=== PATIENT | female | born 1965 | race Caucasian/White ===

== ENCOUNTER → 2017-05-21 | Day surgery (SDC) | payer OTHER ==
[~2017-05-21] MED LIST: ALUMINUM/MAGNESIUM/SIMETH 30 ML CUP ONE; APREPITANT 40 MG CAP ONE; BUPIVACAINE HCL PF 0.5% 30 ML VIAL ONE; CLINDAMYCIN PHOS 900 MG/6 ML VIAL ONE; CYCL-36 PO; KETOROLAC TROMETHAMINE 30 MG/ML (IVP) VIAL IV PUSH ONE; MAGN400 PO; MELO15 PO; MEPERIDINE HCL 25 MG/ML VIAL ONE; MIDAZOLAM HCL 2 MG/2 ML VIAL ONE; ONDANSETRON HCL 4 MG/2 ML VIAL IV PUSH ONE; PROPOFOL 200 MG/20 ML AMP IV ONE; SCOPOLAMINE 1.5 MG PATCH ONE; SODIUM CHLOR 0.9% 1000 ML BAG IV ONE; SODIUM CHLORIDE 0.9% SOLN 100 ML BAG IV ONE; SYNT125T PO; VITA400C28 PO
--- NOTE | 2017-05-21 13:20 | TN ---
cc: ELLY ANDERSON DATE OF SURGERY 05/21/2017 PRINCIPAL DIAGNOSIS Microcalcifications of the left breast not amendable to stereotactic biopsy. POSTOPERATIVE DIAGNOSIS Microcalcifications of the left breast not amendable to stereotactic biopsy. PROCEDURE PERFORMED Left breast needle-localized lumpectomy. SURGEON Elly Anderson MD ANESTHESIA General via LMA device INDICATION The patient is a 51-year-old female with an area of very posterior inferior microcalcifications which were not amendable to stereotactic biopsy. She now presents for needle-localized excision of the area. FINDINGS AT THE TIME OF SURGERY Specimen mammogram did demonstrate an intact wire and the microcalcifications were present within the specimen. PROCEDURE PERFORMED After informed consent was obtained and site verification was performed, the patient was brought to the major radiology suite where she underwent needle localization of her microcalcifications. She was then brought to the major operating room where she underwent general anesthesia via LMA device. She was given a single dose of IV clindamycin and sequential compression hose were placed. The left breast was prepped and draped in a sterile fashion. The microcalcifications were noted at 3 o'clock 5 cm from the nipple close to the inframammary crease. An inframammary crease incision was anesthetized with 0.5% Marcaine plain and incised sharply. Sharp and electrocautery dissection was performed until the wire entry point through the skin was identified and secured with a hemostat. The wire was cut off at the skin with pin cutters and a 2-0 silk transfixion suture was placed at the wire entry point into the breast tissue. Both sharp and electrocautery dissection was then performed circumferentially beyond the tip of the wire and the specimen was oriented with two sutures laterally, one short suture superiorly, and one long suture anteriorly. The specimen was removed and sent for radiology with the findings as noted as well as permanent pathologic evaluation. Inspection of the specimen did demonstrate that the medial and posterior margin was close and this area was reexcised with a stitch on the new posterior margin and sent separately as a permanent specimen. It should be noted that the posterior margin of the lumpectomy cavity was the pectoralis muscle. Hemostasis was easily obtained with electrocautery and the wound was closed using interrupted 3-0 Vicryl subcutaneous sutures and 4-0 Monocryl subcuticular suture. Steri-Strips and sterile dressing were applied. The patient tolerated the procedure well with minimal blood loss and she was extubated in the operating room and brought to the recovery room in good condition. All sponge and needle counts were correct at the conclusion of the case. MD TRAE Minor/YVES /1:07 PM /1:17 PM
== END | disposition home or self-care (01) ==
LOC: ESDC 08:23
PROVIDERS: ATTEND Surgery
DX: D05.12 Intraductal carcinoma in situ of left breast (principal)
CPT/HCPCS: 00400; 19125; 88307; J1885; J2175; J2250; J2405; J3010; J7030; J8501

== ENCOUNTER 2017-07-30 06:03 | Observation (INO) | payer OTHER ==
--- NOTE | 2017-07-24 08:11 | MH ---
cc: ELLY ANDERSON DATE OF ADMISSION: 07/30/2017 PRINCIPAL DIAGNOSIS: Left breast cancer ATTENDING PHYSICIAN: Elly Anderson MD. HISTORY OF PRESENT ILLNESS The patient is a 51-year-old female who had a left breast lumpectomy for microcalcifications which were not amenable to image guided biopsy on May 23. 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 The inferior margin was positive for invasive carcinoma and the superior margin was positive for DCIS. She has opted for mastectomy with immediate reconstruction and sentinel lymph node biopsy. She subsequently had a breast MRI which revealed a negative right breast and questionable level II pathologic left axillary lymph node. PAST MEDICAL HISTORY 1. Hypothyroidism. 2. Low vitamin D. 3. History of peptic ulcer disease. 4. Rheumatoid arthritis. 5. Difficulty with general anesthesia requiring long period of time to wake up. PAST SURGICAL HISTORY: 1. An open left breast biopsy. 2. Hysterectomy for dysmenorrhea at age 40. 3. A recent left breast lumpectomy. CURRENT MEDICATIONS: 1. Synthroid 0.1 milligrams daily. 2. Pantoprazole 40 milligrams daily. 3. Vitamin D 5000 milligrams every Friday and . 4. Folate two tablets on Friday and one on Friday through Friday. 5. Methotrexate IM twice weekly. ALLERGIES: 1. PENICILLIN AND SULFA WHICH ARE ASSOCIATED WITH HIVES AND URTICARIA. 2. SHE HAD AN ADVERSE DRUG REACTION TO CODEINE, WHICH IS ASSOCIATED WITH HEADACHES AND NAUSEA. FAMILY HISTORY: Noncontributory. REPRODUCTIVE HISTORY: 2, para 2. Menarche age 15. First child age 29. Surgical menopause age 40. She does not take surgical menopause age 40. She does not take hormone replacement therapy. Hereditary breast cancer panel testing was performed and this was negative for a mutation. REVIEW OF SYSTEMS: A twelve point review of systems was significant for Gastroesophageal reflux and joint pain. PHYSICAL EXAMINATION: GENERAL: On physical exam she is alert and oriented times three and in no acute distress. HEAD, EYES, EARS, NOSE, THROAT: NECK: Unremarkable. CHEST: Clear throughout. CARDIAC: Normal S1 and S2 with no murmurs, rubs or gallops. BREASTS: Fibrocystic changes with no palpable masses. There was an open left inframammary crease wound with minimal serous drainage. There was an old seven o'clock inframammary crease scar in the left breast as well as the new five o'clock inframammary wound. ABDOMEN: Well-healed port scars with no masses or tenderness. The remainder of her exam was unremarkable. IMPRESSION: Ms. Dover has extensive DCIS as well as a clinical stage I left breast cancer. She has opted for mastectomy with immediate reconstruction and will also require sentinel lymph node biopsy. This is currently scheduled for the near future. MD TRAE Minor/LOIDA /4:48 PM /8:04 AM
[~2017-07-30] VITALS: Ht 162.6 cm; Wt 80.0 kg
[~2017-07-30 06:03] MED LIST changes: -ALUMINUM/MAGNESIUM/SIMETH 30 ML CUP ONE; -APREPITANT 40 MG CAP ONE; -BUPIVACAINE HCL PF 0.5% 30 ML VIAL ONE; -CLINDAMYCIN PHOS 900 MG/6 ML VIAL ONE; -CYCL-36 PO; +D3-5CAP PO; +FOLI800T PO; -KETOROLAC TROMETHAMINE 30 MG/ML (IVP) VIAL IV PUSH ONE; +LEVO.125 PO; -MAGN400 PO; +MAGN400T2 PO; -MELO15 PO; -MEPERIDINE HCL 25 MG/ML VIAL ONE; -MIDAZOLAM HCL 2 MG/2 ML VIAL ONE; -ONDANSETRON HCL 4 MG/2 ML VIAL IV PUSH ONE; -PROPOFOL 200 MG/20 ML AMP IV ONE; -SCOPOLAMINE 1.5 MG PATCH ONE; -SODIUM CHLOR 0.9% 1000 ML BAG IV ONE; -SODIUM CHLORIDE 0.9% SOLN 100 ML BAG IV ONE; -SYNT125T PO; -VITA400C28 PO
[2017-07-30] MEDS ORDERED: METOPROLOL TARTRATE 25 MG TAB PO PRN (06:30)
[2017-07-30] MEDS ORDERED: INSULIN HUMAN REGULAR 1,000 UNITS/10 ML VIAL SQ PRN (06:30)
[2017-07-30] MEDS ORDERED: ONDANSETRON HCL 4 MG/2 ML VIAL IV PUSH SCH (06:30)
[2017-07-30] MEDS ORDERED: SODIUM CHLORID 0.9% 500 ML IV PRN (06:30)
[2017-07-30] MEDS ORDERED: CLINDAMYCIN 900/NS 100 ML IV SCH ×2 (06:30)
[2017-07-30] MEDS ORDERED: POVIDONE IODINE 5% (ANTISEPSIS KIT) 4 APPLICATIONS EACH NARE PRN (06:30)
[2017-07-30] MEDS ORDERED: LACTATED RINGER'S 1000 ML IV PRN (06:30)
[2017-07-30] MEDS ORDERED: CHLORHEXIDINE GLUCONATE 2 % 1 PACK (2 CLOTHS) TOPICAL PRN (06:30)
[2017-07-30] MEDS ORDERED: SODIUM CHLORIDE 0.9% INJ 100 ML ONE (07:02)
[2017-07-30] MEDS ORDERED: METH25IN13 SQ (07:16)
[2017-07-30 08:40] VITALS: BP 116/88; PULSE 77; RESP 14; TEMP 97; O2SAT 98
[2017-07-30] MEDS ORDERED: PROPOFOL 200 MG/20 ML AMP IV ONE (09:23)
[2017-07-30] MEDS ORDERED: LIDOCAINE HCL 1% PF 5 ML AMPULE OTHER ONE (09:23)
[2017-07-30] MEDS ORDERED: ROCURONIUM INJ 50 MG/5 ML SYRINGE IV PUSH ONE (09:23)
[2017-07-30] MEDS ORDERED: MIDAZOLAM HCL 2 MG/2 ML VIAL IV ONE (09:23)
--- NOTE | 2017-07-30 09:25 | RADRPT ---
EXAM DATE/TIME: 07/30/2017 08:32 [facility] COMPARISON: No previous studies available for comparison. EXTERNAL COMPARISON : [facility], MAMMOGRAM, RIGHT BREAST W TOMOSYNTHESIS, June 26, 2017, MRI BREAST, BILATERAL, June 05, 2017, MAMMOGRAM, LEFT BREAST W TOMOSYNTHESIS, April 22, 2017, MAMMOGRAM, SCREENING, December 20, 2011, [facility], US AXILLA LEFT, June 17, 2017, MG BREAST SPECIMEN & BREAST NEEDLE LO CALIZATION, May 21, 2017. INDICATIONS : Left breast cancer. MEDICAL HISTORY : Gastroesophageal reflux disease. Hypercholesterolemia. Hypothyroidism. Ulcer. Left breast cancer. A rthritis. SURGICAL HISTORY : Hysterectomy. Lumpectomy, left breast. ENCOUNTER: Initial ACUITY: 3 months PAIN SCORE: 4/10 LOCATION: Left breast. AREA EVALUATED: Left breast, upper quadrant; at 3 o'clock Radiopharmaceutical dose: 2 1.1 mCi Mellen colloid, Tc99m FINDINGS: Breast ultrasound was performed prior to lymphoscintigraphy. There is heterogeneous tissue at the 3: 00 position of the left breast in the area of prior lumpectomy. CONCLUSION: Ultrasound guidance was utilized for left breast lymphoscintigraphy. Klaus Monzon MD on July 30, 2017 at 9:20 Board Certified Radiologist. This report was verified electronically.
--- NOTE | 2017-07-30 10:44 | RADRPT ---
EXAM DATE/TIME: 07/30/2017 08:52 [facility] COMPARISON: No previous studies available for comparison. EXTERNAL COMPARISON : [facility], MAMMOGRAM, June 26, 2017[facility], MR Breast Bilateral, June 05 7. INDICATIONS : Left sided breast cancer. DOSE: 1.1 mCi Tc99m Sulfur Colloid INJECTION SITE: Left Breast MEDICAL HISTORY : Hypothyroidism. Carcinoma, breast. SURGICAL HISTORY : Hysterectomy. Lumpectomy. ENCOUNTER: Initial ACUITY: 3 months PAIN SCALE: 0/10 LOCATION: Left Breast. TECHNIQUE: Injection(s) of sulfur colloid was performed under sonographic guidance. Static imaging was obtained . FINDINGS: Initial postinjection images were obtained and documented the radiopharmaceutical within the left sherron ast. Lymph nodes are beginning to be visualized. No marking was performed at the request of the order ing surgeon. CONCLUSION: [place] lymph node identification performed, as above. Klaus Monzon MD on July 30, 2017 at 10:42 Board Certified Radiologist. This report was verified electronically.
[2017-07-30] MEDS ORDERED: BUPIVACAINE/EPINEPHRINE 0.5% 50 ML VIAL ONE (11:13)
[2017-07-30] MEDS ORDERED: HEPARIN SODIUM - IV 10,000 UNITS/10 ML VIAL ONE (11:27)
[2017-07-30] MEDS ORDERED: SODIUM CHLORIDE 0.9% 20 ML VIAL ONE ×2 (11:27→13:01)
[2017-07-30] MEDS ORDERED: MIDAZOLAM HCL 2 MG/2 ML VIAL ONE (11:58)
[2017-07-30] MEDS ORDERED: DEXAMETHASONE SOD PHOS 4 MG/ML VIAL ONE (11:59)
[2017-07-30] MEDS ORDERED: ISOSULFAN BLUE 50 MG/5 ML VIAL SQ ONE (12:45)
[2017-07-30] MEDS ORDERED: *morphine SULFATE 8 MG/ML PERIprocedure ONLY ONE (16:18)
[2017-07-30] MEDS ORDERED: *HYDROmorphone PF 1 MG VIAL PERIprocedural Use ONLY ONE (16:48)
[2017-07-30] MEDS: DEXT 5%-NACL 0.9% 1000 ML INJ 1,000 ML IV SCH (17:00)
--- NOTE | 2017-07-30 17:29 | RADRPT ---
EXAM DATE/TIME: 07/30/2017 16:24 [facility] COMPARISON: No previous studies available for comparison. INDICATIONS : Line placement. MEDICAL HISTORY : None. SURGICAL HISTORY : None. ENCOUNTER: Initial ACUITY: 1 day PAIN SCORE: Non-responsive. LOCATION: Bilateral chest FINDINGS: A single view of the chest demonstrates hypoinflation with minimal atelectatic changes in the bases. DORI type drain overlies the left breast. Probable port in the right subclavian with the tip projecting over the central venous system. No pneumothorax. Osseous structures are intact. CONCLUSION: 1. Probable right subclavian port with the tip projecting over the central venous system. 2. DORI type drain in the region of the left breast. 3. Hypoinflation with minimal atelectatic changes in the bases. No pneumothorax. Ari Alexander MD on July 30, 2017 at 17:26 Board Certified Radiologist. This report was verified electronically.
[2017-07-30] MEDS ORDERED: DO NOT ADM ANY ANTICOAGULANT DRUGS PRN (18:00)
[2017-07-30] MEDS ORDERED: HYDROmorphone HCL 2 MG TAB PO PRN (18:00)
[2017-07-30 18:30] VITALS: BP 143/75; PULSE 90; RESP 20; TEMP 97.3; O2SAT 97
[2017-07-30 20:00] VITALS: BP 134/67; PULSE 87; RESP 18; TEMP 97.7; O2SAT 97
[2017-07-30] MEDS: HYDROmorphone HCL PF 1 MG/ML VIAL IV PRN (22:03)
[2017-07-30] MEDS: ONDANSETRON HCL 4 MG/2 ML VIAL IV PUSH PRN (22:03)
[2017-07-31] VITALS (8 sets, daily range): BP systolic 133–160; BP diastolic 70–76; PULSE 61–72; RESP 16–20; TEMP 96.3–98.7; O2SAT 96–99
[2017-07-31] MEDS: DEXT 5%-NACL 0.9% 1000 ML INJ 1,000 ML IV SCH ×3 (00:32→17:55)
[2017-07-31] MEDS: CLINDAMYCIN 600 MG/NS 100 ML IV SCH ×6 (00:32→09:19)
[2017-07-31] MEDS: HYDROmorphone HCL PF 1 MG/ML VIAL IV PRN ×5 (03:09→21:29)
--- NOTE | 2017-07-31 06:47 | MP ---
cc: MAX ANDERSON DATE OF SURGERY 07/30/2017 PRINCIPAL DIAGNOSIS Left breast cancer. PROCEDURE PERFORMED 1. Left mastectomy and left axillary sentinel lymph node biopsy with immediate reconstruction, nipple sparing. 2. Right subclavian [id number] placement. SURGEON MD Maninder Hughes MD ANESTHESIA General endotracheal. INDICATION The patient is a 52-year-old female who had a recent left breast lumpectomy for calcifications which were not amendable to image guided biopsy. Pathology demonstrated invasive carcinoma and she now presents for definitive surgical therapy. FINDINGS AT THE TIME OF SURGERY Normal right subclavian anatomy was noted. The previous left breast lumpectomy cavity was identified and excised as part of the mastectomy specimen. There was no gross evidence of residual disease. Frozen section of the undersurface of the left nipple was negative for carcinoma and two sentinel lymph nodes were identified. Lymph node #1 was not blue and had a count of 66,295 and sentinel lymph node #2 was not blue and had a count of 4622. PROCEDURE PERFORMED After informed consent was obtained and site verification was performed, the patient was brought to the Radiology Suite where she underwent peritumoral radionuclide injection. She was then brought to the major operating room where she underwent general anesthesia via an endotracheal tube. She was given a single dose of IV clindamycin due to PENICILLIN ALLERGY. The left breast and arm were prepped and draped in sterile fashion and the right chest was also prepped. Sequential compression hose were placed. 3 cc of half-strength Lymphazurin were injected in the subareolar left breast and a 5-minute massage was performed. The right subclavian vein was identified via percutaneous cannulation and a J-wire was advanced via the Seldinger technique using fluoroscopic guidance until the tip was in the central circulation. Local analgesia was then applied around the wire and both sharp and electrocautery dissection was performed until a subcutaneous pocket for the reservoir had been created. The catheter was measured out at 30 cm and was flushed with heparinized saline and cut off. A peel-away sheath and introducer were advanced over the wire without difficulty and the introducer and wire were removed. The catheter advanced easily through the peel-away sheath into the central circulation and there was good position of the catheter tip at 17 cm. The catheter was cut off at this point and secured to the reservoir which was noted to flush and aspirate easily. The reservoir was secured to the chest wall with two 2-0 Prolene sutures and in good hemostasis was noted. The wound was closed using interrupted 3-0 Vicryl subcutaneous sutures and a 4-0 Monocryl subcuticular suture. Steri-Strips and a sterile dressing were applied. Attention was then turned to the left breast where an inframammary skin incision was marked out to incorporate the prior inframammary lumpectomy scar. 150 cc of tumescent solution mixed with 15 cc of saline of 0.5% Marcaine with epinephrine were then infiltrated in the plane between the subcutaneous fat and anterior breast fascia circumferentially around the breast. Sharp dissection was then performed through the inframammary crease incision to develop the medial and lateral anterior plane at the level of the anterior breast fascia up to the level of the nipple. Electrocautery was then used to develop the posterior plane in the breast and pectoralis fascia was dissected free from the underlying pectoralis muscle. Sharp dissection was then performed in the region of the nipple and a piece of tissue just beneath the nipple was sharply removed with a stitch on the margin just beneath the nipple and this was sent for frozen section which was negative for breast cancer. Further sharp dissection was then performed medially and laterally in the anterior plane between the subcutaneous fat and anterior breast fascia up to the level of the clavicle and the breast tissue was then completely mobilized and delivered through the wound. The specimen was oriented with two sutures anteriorly, one short suture superiorly, and one long suture laterally. The breast was weighed and then sent for permanent pathologic evaluation. Inspection of the Level I axilla was then performed and the clavipectoral fascia was divided. There were some palpable enlarged lymph nodes although there were no blue lymphatics in the axilla. [place] lymph node #1 was in mid-Level I and was dissected free from surrounding structures using the harmonic scalpel. This lymph node had a count of 66,295, but there was no blue enhancement. [place] lymph node #2 was in high Level I and was dissected free from surrounding structures using the harmonic scalpel. This count was 4622 and these lymph nodes were sent separately for permanent pathologic evaluation. Some adjacent axillary tissue was removed using the harmonic scalpel and sent as a permanent specimen. Good hemostasis was noted and reconstruction was then performed and will be recorded on a separate dictation by Dr. Little. MD TRAE Minor/SUSAN /3:00 PM /6:24 AM
--- NOTE | 2017-07-31 07:11 | MP ---
cc: EVY BLACKMON M.D. DATE OF SURGERY 07/30/2017 PREOPERATIVE DIAGNOSIS Left amastia status post mastectomy POSTOPERATIVE DIAGNOSIS Left amastia status post mastectomy OPERATION Left breast immediate reconstruction with AlloMax and tissue service team leader placement. SURGEON Dr. Blackmon ANESTHESIA General INDICATIONS A 52-year-old white female with left breast cancer. She just underwent surgery by Dr. Pendleton for left mastectomy and lymph node biopsy and also right side port placement. She was continued under anesthesia for the immediate reconstruction. The patient has undergone a detailed explanation of the procedure, the pros, cons, risks, complication and multiple stages of the reconstruction and she is willing to go ahead with the surgery. PROCEDURE She was continue under anesthesia. The operative site was washed with sterile saline. The left breast mastectomy cavity was irrigated copiously clean. Hemostasis was double-checked and a couple of larger vessels were suture ligated. A small amount of tissue was still adherent to the chest wall outside of the pectoralis major muscle which belonged to the original wound that the patient had. This was resected and added to the breast mastectomy specimen. The flap itself was adequate with perfusion. A small area of loose fat was resected. A subpectoral pocket was created and an AlloMax graft 8 x 16 was hydrated and applied to the inframammary fold anterior chest wall and sutured in place, tacked with the 2-0 Vicryl sutures to the chest wall and the lateral border of the pectoralis major muscle at the axillary fold. A Eliazar-Lackey drain #10 mm was inserted and was brought around the axilla and down to the pectoralis major muscle in a subcutaneous pocket. The service team leader selected was [employer] [id number] tissue service team leader, serial number [id number]. The service team leader was emptied of all the air. The borders were folded posteriorly to protect the port area and then the service team leader was placed. We oriented the port towards the 12 o'clock position. It was pushed under the pectoralis major muscle and also medially as far as possible. The AlloMax graft was brought over the lower part of the service team leader. It was sutured to the edge of the pectoralis major muscle. The breast flaps were sutured with a Vicryl and Prolene sutures. A magnet and the filling needle were used and the service team leader was filled with 360 cc of normal saline using a three-way no-touch technique. The breast flap was moved over the service team leader and the muscle to position the nipple in a central location and the vacuum was applied to the drain. The drain also had been secured to the skin. All the areas were cleaned and a sterile dressing was applied. The patient remained stable. Intraoperative blood loss minimal, less than 5 cc. No complications. signed, not fully reviewed MD ROCKY Mott/YVES /4:05 PM /6:51 AM AURELIA
--- NOTE | 2017-07-31 09:06 | HHI.PR ---
Subjective Subjective Notes Still nauseated and not mobile. Requiring IV narcotics for pain control. Objective Vitals/I&O Vital Signs Date Time Temp Pulse Resp B/P (MAP) Pulse Ox O2 Delivery O2 Flow Rate FiO2 07/31/17 06:15 96 Nasal Cannula 2.00 07/31/17 04:00 97.6 62 16 160/76 (104) Drain output 70/50cc. Radiology CXR shows good line placement and no pneumothorax. Cardiovascular: Regular Lungs: Clear Narrative Exam Mild inferior left breast erythema. No seroma or hematoma. Nipple viable. A/P Problem List: (1) Breast cancer ICD Codes: C50.919 - Malignant neoplasm of unspecified site of unspecified female breast Status: Acute (2) Status post left mastectomy ICD Codes: Z90.12 - Acquired absence of left breast and nipple Assessment and Plan Not ready for discharge due to nausea and pain control. Encourage ambulation. Problem Qualifiers (1) Breast cancer: Qualified Codes: C50.512 - Malignant neoplasm of lower-outer quadrant of left female breast; Z17.0 - Estrogen receptor positive status [ER+] Elly Pendleton MD Jul 31, 2017 09:06
[2017-07-31] MEDS: ONDANSETRON HCL 4 MG/2 ML VIAL IV PUSH PRN ×2 (09:19→17:05)
--- NOTE | 2017-07-31 21:38 | PD.PLAS.PN ---
Subjective Remarks Patient doing very well post op Left breast size unchanged since surgery, no hematoma. no bruising Flap color pink and is warm normal Drainage minimal in DORI Vitals good Pain ++ Patient staying one more night - was seen earlier by Dr. Pendleton OK to discharge from my standpoint, FU in [facility] on Friday next week. Vital Signs Date Time Temp Pulse Resp B/P (MAP) Pulse Ox O2 Delivery O2 Flow Rate FiO2 07/31/17 20:00 97.8 61 18 141/74 (96) 97 07/31/17 15:50 98.7 63 20 147/75 (99) 98 07/31/17 11:50 97.1 61 20 157/70 (99) 99 07/31/17 09:04 99 07/31/17 07:50 96.4 64 20 133/75 (94) 07/31/17 06:15 96 Nasal Cannula 2.00 07/31/17 04:00 97.6 62 16 160/76 (104) 96 07/31/17 00:00 96.3 72 16 148/75 (99) 97 I/O 07/30/17 07/30/17 07/30/17 07/31/17 07/31/17 07/31/17 07:00 15:00 23:00 07:00 15:00 23:00 Intake Total 2125 ml 1104 ml 0 ml Output Total 190 ml 30 ml 45 ml Balance 1935 ml -30 ml 1104 ml -45 ml Intake Oral 0 ml IV Total 125 ml 1104 ml Other 2000 ml Output Drainage Total 90 ml 30 ml 45 ml Estimated Blood Loss 100 ml # Voids 2 3 3 # Bowel Movements 0 Maninder Little MD Jul 31, 2017 21:38
[2017-08-01] VITALS: BP 139/80; PULSE 69; RESP 18; TEMP 98; O2SAT 98
[2017-08-01] MEDS: HYDROmorphone HCL PF 1 MG/ML VIAL IV PRN ×2 (01:23→06:50)
[2017-08-01] MEDS: ONDANSETRON HCL 4 MG/2 ML VIAL IV PUSH PRN (01:24)
[2017-08-01] MEDS: DEXT 5%-NACL 0.9% 1000 ML INJ 1,000 ML IV SCH (01:40)
[2017-08-01 04:00] VITALS: BP 136/72; PULSE 65; RESP 18; TEMP 98.6; O2SAT 98
[2017-08-01 08:00] VITALS: BP 130/85; PULSE 75; RESP 14; TEMP 97.9; O2SAT 95
[2017-08-01] MEDS ORDERED: NEOSTIGMINE 3 MG/3 ML SYR IV ONE (09:20)
[2017-08-01] MEDS ORDERED: PROPOFOL 200 MG/20 ML AMP IV ONE (09:20)
[2017-08-01] MEDS ORDERED: MORPHINE SULFATE 4 MG/ML INJ IV ONE (09:20)
[2017-08-01] MEDS ORDERED: ONDANSETRON HCL 4 MG/2 ML VIAL IV PUSH ONE (09:20)
[2017-08-01] MEDS ORDERED: GLYCOPYRROLATE 0.2 MG/ML VIAL IV ONE (09:20)
--- NOTE | 2017-08-01 10:00 | HHI.DS ---
Discharge Summary Admission Date Jul 30, 2017 at 18:40 Admitting Diagnosis Left breast cancer (1) Breast cancer ICD Codes: C50.919 - Malignant neoplasm of unspecified site of unspecified female breast Status: Acute (2) Status post left mastectomy Diagnosis: Principal ICD Codes: Z90.12 - Acquired absence of left breast and nipple Procedures Left nipple sparing mastectomy with left axillary sentinel lymph node biopsy and immediate tissue director payment reconstruction with allomax, right subclavian infusaport placement Brief History Patient required lumpectomy fpr density not amenable to image guided biopsy. Lumpectomy revealed left breast cancer, clinical stage 1. She opted for mastectomy and reconstruction. Significant Findings No gross evidence of residual malignancy identified Imaging Chest Xray revealed good port position and no pneumothorax. PE at Discharge Left chest wall flap and nipple viable with no ischemia or infection. Hospital Course Admiteed postop for pain management and nausea. Slowly improved after 24 hours observation. Pt Condition on Discharge: Good Discharge Disposition: Discharge Home Discharge Instructions DIET: Follow Instructions for: As Tolerated, No Restrictions Activities you can perform: Shower Only-No Bath Activities to avoid: Strenuous Activity, Bathing, Driving Elly Pendleton MD Aug 01, 2017 10:00
--- NOTE | 2017-08-01 10:03 | HHI.PR ---
Subjective Subjective Notes Pian and nausea improved. Asking to ambulate more and for regular diet. Objective Vitals/I&O Vital Signs Date Time Temp Pulse Resp B/P (MAP) Pulse Ox O2 Delivery O2 Flow Rate FiO2 08/01/17 04:00 98.6 65 18 136/72 (93) 98 07/31/17 06:15 Nasal Cannula 2.00 Drain output 300cc serosanguinous fluid. Radiology CXR shows good line placement and no pneumothorax. Cardiovascular: Regular Lungs: Clear Narrative Exam Less inferior left chest wall erythema. Flaps and nipple remain viable. No infection. Wound Wound : Dressing: Dry A/P Problem List: (1) Breast cancer ICD Codes: C50.919 - Malignant neoplasm of unspecified site of unspecified female breast Status: Acute (2) Status post left mastectomy ICD Codes: Z90.12 - Acquired absence of left breast and nipple Assessment and Plan Doing well Discharge home with pain medication and flexeril. Problem Qualifiers (1) Breast cancer: Qualified Codes: C50.512 - Malignant neoplasm of lower-outer quadrant of left female breast; Z17.0 - Estrogen receptor positive status [ER+] Elly Pendleton MD Aug 01, 2017 10:03
== END 2017-08-01 12:29 | disposition home or self-care (01) ==
LOC: HSDC 06:03 → HOCB 18:40
PROVIDERS: ADMIT Surgery; ATTEND Surgery
DX: C50.512 Malignant neoplasm of lower-outer quadrant of left female breast (principal); E03.9 Hypothyroidism, unspecified; R11.0 Nausea; Z17.0 Estrogen receptor positive status [ER+]
CPT/HCPCS: 00402; 15273; 19303; 19357; 36561; 38525; 38900; 71010; 76642; 77001; 78195; 88305; 88307; 88309; 88331; 94150; 96361; 96365; 96375; 96376; A9541; C1788; C1789; G0378; J1100; J1170; J1644; J2250; J2270; J2405; J2710; J3010; J7042; J7120; Q4100; Q9968

== ENCOUNTER 2017-08-22 15:03 | Inpatient (IN) | payer OTHER ==
[~2017-08-22] VITALS: Ht 162.6 cm; Wt 87.4 kg
[~2017-08-22 15:03] MED LIST changes: +LIDOCAINE HCL 1% PF 5 ML AMPULE OTHER ONE; +METH25IN13 SQ; +MIDAZOLAM HCL 2 MG/2 ML VIAL IV ONE; +ONDANSETRON HCL 4 MG/2 ML VIAL IV PUSH ONE; +PROPOFOL 200 MG/20 ML AMP IV ONE; +STERILE WATER FOR INJECTION 20 ML VIAL IV ONE
[2017-08-22] MEDS ORDERED: POVIDONE IODINE 5% (ANTISEPSIS KIT) 4 APPLICATIONS EACH NARE PRN (16:15)
[2017-08-22] MEDS ORDERED: LACTATED RINGER'S 1000 ML IV PRN (16:15)
[2017-08-22] MEDS ORDERED: CHLORHEXIDINE GLUCONATE 2 % 1 PACK (2 CLOTHS) TOPICAL PRN (16:15)
[2017-08-22] MEDS ORDERED: INSULIN HUMAN REGULAR 1,000 UNITS/10 ML VIAL SQ PRN (16:15)
[2017-08-22] MEDS ORDERED: METOPROLOL TARTRATE 25 MG TAB PO PRN (16:15)
[2017-08-22] MEDS ORDERED: SODIUM CHLORID 0.9% 500 ML IV PRN (16:15)
[2017-08-22] MEDS ORDERED: HYDR-3516 PO (16:23)
[2017-08-22] MEDS ORDERED: CYCL1TAB29 PO (16:23)
[2017-08-22] MEDS ORDERED: LEVO100T5 PO (16:23)
[2017-08-22 17:37] LABS: AUTOMATED NEUTROPHIL # 3.5 TH/MM3 (1.8-7.7); BASOPHIL % 0.3 % (0.0-2.0); EOSINOPHIL # 0.4 TH/MM3 (0-0.4); EOSINOPHIL % 6.7 % (0.0-4.0); HEMATOCRIT 43.2 % (35.0-46.0); HEMO FLAGS DIFF FINAL; LYMPH % 31.2 % (9.0-44.0); MEAN CORPUSCULAR HEMOGLOBIN 28.8 PG (27.0-34.0); MEAN CORPUSCULAR HGB CONC 33.1 % (32.0-36.0); MONO % 7.2 % (0.0-8.0); NEUT % 54.6 % (16.0-70.0); PLATELET COUNT 207 TH/MM3 (150-450); RED BLOOD COUNT 4.97 MIL/MM3 (4.00-5.30); RED CELL DISTRIBUTION WIDTH 13.9 % (11.6-17.2); WHITE BLOOD COUNT 6.5 TH/MM3 (4.0-11.0)
[2017-08-22 17:56] LABS: BICARBONATE 28.4 MEQ/L (21.0-32.0); POTASSIUM 3.7 MEQ/L (3.5-5.1)
[2017-08-22] MEDS ORDERED: APREPITANT 40 MG CAP ONE (19:26)
[2017-08-22] MEDS ORDERED: ceFAZolin INJ 1,000 MG VIAL ONE (19:53)
[2017-08-22] MEDS ORDERED: LIDOCAINE 2%/EPINEPHrine PF 1:200,000 20ML SDV ONE (19:53)
[2017-08-22] MEDS ORDERED: ACETAMINOPHEN 1000 MG/100 ML 100 ML IV ONE (21:26)
[2017-08-22] MEDS ORDERED: DEXAMETHASONE SOD PHOS 4 MG/ML VIAL ONE (21:26)
[2017-08-22] MEDS ORDERED: FAMOTIDINE 20 MG/2 ML VIAL ONE (21:26)
[2017-08-22] MEDS ORDERED: METOCLOPRAMIDE HCL 10 MG/2 ML VIAL ONE (21:26)
[2017-08-22] MEDS ORDERED: VANCOMYCIN HCL 1000 MG VIAL ONE (22:04)
[2017-08-22] MEDS ORDERED: GENTAMICIN SULFATE 80 MG/2 ML VIAL ONE (22:04)
[2017-08-22] MEDS ORDERED: DO NOT ADM ANY ANTICOAGULANT DRUGS PRN (22:45)
[2017-08-22] MEDS ORDERED: *ONDANSETRON 4 MG VIAL PERIprocedural Use ONLY ONE (22:58)
[2017-08-22] MEDS ORDERED: PANTOPRAZOLE SOD 40 MG DELAYED RELEASE TAB PO PRN (23:00)
[2017-08-22] MEDS ORDERED: CYCLOBENZAPRINE HCL 10 MG TAB PO PRN (23:00)
[2017-08-22] MEDS ORDERED: *morphine SULFATE 8 MG/ML PERIprocedure ONLY ONE ×2 (23:02→23:17)
[2017-08-22] MEDS ORDERED: PROMETHAZINE HCL 25 MG TAB PO PRN (23:15)
[2017-08-22] MEDS ORDERED: HYDROmorphone HCL PF 1 MG/ML VIAL IV PRN (23:15)
[2017-08-22] MEDS ORDERED: HYDROmorphone HCL 2 MG TAB PO PRN (23:15)
[2017-08-23 00:51] VITALS: BP 116/76; PULSE 80; RESP 17; TEMP 99.5; O2SAT 98
[2017-08-23 04:19] VITALS: BP 121/86; PULSE 83; RESP 17; TEMP 97.3; O2SAT 97
[2017-08-23] MEDS: LEVOTHYROXINE SODIUM 100 MCG TAB PO SCH (05:54)
[2017-08-23 08:00] VITALS: BP 113/74; PULSE 80; RESP 18; TEMP 96; O2SAT 97
[2017-08-23 12:00] VITALS: BP 105/77; PULSE 91; RESP 16; TEMP 95.6; O2SAT 93
[2017-08-23] MEDS ORDERED: Vancomycin Consult Pharmacy 1 EA OTHER SCH (12:00)
--- NOTE | 2017-08-23 12:42 | PD.PLAS.PN ---
Subjective Remarks Patient doing well post op minimal pain, ok with Rx Wants Hydrocodone instead of dilaudid She is not allergic to codeine, just stomach upset L breast soft, flap fully viable, not warm, mild redness drain active and serosanguineous She was seen by ID - will follow their recommendation OK to leave the current dressing on, no need to change. Vital Signs Date Time Temp Pulse Resp B/P (MAP) Pulse Ox O2 Delivery O2 Flow Rate FiO2 08/23/17 09:45 Room Air 08/23/17 08:00 96.0 80 18 113/74 (87) 97 08/23/17 07:22 18 08/23/17 04:19 97.3 83 17 121/86 (98) 97 08/23/17 03:13 Room Air 08/23/17 00:51 99.5 80 17 116/76 (89) 98 08/22/17 23:30 89 20 114/68 (83) 95 Room Air 08/22/17 23:15 91 20 112/71 (85) 97 Room Air 08/22/17 23:00 98 10 131/77 (95) 97 Room Air 08/22/17 22:45 95 14 131/72 (91) 96 Room Air 08/22/17 22:42 98.0 97 15 121/61 (81) 97 Room Air I/O 08/22/17 08/22/17 08/22/17 08/23/17 08/23/17 08/23/17 06:59 14:59 22:59 06:59 14:59 22:59 Intake Total 500 ml 740 ml Output Total 20 ml 35 ml Balance 480 ml 705 ml Intake Oral 240 ml IV Total 500 ml Other 500 ml Output Drainage Total 35 ml Estimated Blood Loss 20 ml # Voids 3 # Bowel Movements 0 Laboratory Tests Test 08/22/17 16:35 White Blood Count 6.5 Red Blood Count 4.97 Hemoglobin 14.3 Hematocrit 43.2 Mean Corpuscular Volume 87.0 Mean Corpuscular Hemoglobin 28.8 Mean Corpuscular Hemoglobin Concent 33.1 Red Cell Distribution Width 13.9 Platelet Count 207 Mean Platelet Volume 8.6 Neutrophils (%) (Auto) 54.6 Lymphocytes (%) (Auto) 31.2 Monocytes (%) (Auto) 7.2 Eosinophils (%) (Auto) 6.7 Basophils (%) (Auto) 0.3 Neutrophils # (Auto) 3.5 Lymphocytes # (Auto) 2.0 Monocytes # (Auto) 0.5 Eosinophils # (Auto) 0.4 Basophils # (Auto) 0.0 CBC Comment DIFF FINAL Differential Comment Blood Urea Nitrogen 8 Creatinine 0.77 Random Glucose 77 Calcium Level 9.3 Sodium Level 140 Potassium Level 3.7 Chloride Level 105 Carbon Dioxide Level 28.4 Anion Gap 7 Estimat Glomerular Filtration Rate 79 Date/Time Source Procedure Growth Status 08/23/17 04:05 Wound Breast Fungal Smear Pending Received 08/23/17 04:05 Wound Breast Fungal Culture Pending Received Result Diagram: 08/22/17 1635 08/22/17 1635 Maninder Little MD Aug 23, 2017 12:42
[2017-08-23] MEDS: CYCLOBENZAPRINE HCL 10 MG TAB PO SCH ×2 (14:00→23:49)
[2017-08-23] MEDS: ACETAMINOPHEN/HYDROcodone 325 MG/5 MG TAB PO PRN ×2 (14:23→18:15)
--- NOTE | 2017-08-23 15:28 | MP ---
cc: EVY LITTLE M.D. DATE OF SURGERY: 08/22/17 PREOPERATIVE DIAGNOSIS Left breast reconstruction, seroma. POSTOPERATIVE DIAGNOSIS Left breast reconstruction, seroma. OPERATION Exploration of left breast with drainage of seroma approximately 50 cc. Antibiotic irrigation of left breast pocket with gentamicin and insertion of DORI drain and closure of the incision. SURGEON Dr. Little. ANESTHESIA General. INDICATIONS A 52-year-old white female who has undergone left mastectomy and immediate tissue microsoft application developer and AlloMax reconstruction approximately 3+ weeks back. She had her drain removed approximately 10 days back. She has managed to accumulate fluid. The left breast is bigger in the past 10 days or so. The volume in the microsoft application developer is 360 cc. The total breast volume looks more close to 450-500 cc volume. The patient otherwise is afebrile. No signs of infection clinically, also WBC count has been normal. She was seen in the [facility] this morning and a need to explore and drain the seroma was discussed. The possibility that there may be a subclinical infection coming up and that the microsoft application developer may need to be removed and the breast pocket debrided was also explained. The patient understands that the current operation is an attempt to salvage the tissue expansion and it may or may not succeed. The clinical course and the culture result in the next few days will decide further outcome. She understands that in case of loss of microsoft application developer she will need to wait out until all the healing is complete and there is no infection, and then a second attempt at reconstruction can be done in the future with a possibility of altered envelope breast tissue flaps and the final outcome depending on the starting point. The patient is willing to go ahead with the surgery. PROCEDURE The patient was brought to the operating room, was given supine position. Anesthesia was started. Prep and drape was done. IV antibiotics are being held for the time-being. The timeout was called and completed. The area of the entire incision was cleaned thoroughly. The Prolene suture was removed. There is a small bulging point approximately 2 cm from the lateral end of incision. This area was gently teased open, it allowed the seroma fluid to drain out. It is mostly clear yellow, slightly mucoid noted, no smell, no blood. A culture sample was taken after allowing the fluid to drain for a few ccs. The incision was then enlarged bluntly for about one inch distance and the edges of the incision were trimmed out. The fluid was gently squeezed out. It was noted that part of the AlloMax graft has dissolved and is no longer covering the lower part of the microsoft application developer. The pocket was suctioned, cleaned thoroughly using a Yemeksepetiuer suction. First, inserting the suction with the suction clip pinched in order to allow the suction tip to reach the farthest distance, and then turning on the suction and withdrawing it in several passes. The entire breast pocket was then irrigated thoroughly with 1000 cc of saline mixed with 160 mg of gentamicin using a bulb syringe and also a soft-over catheter to start irrigation at the highest point of the breast pocket. Finally, aspiration of the remaining fluid was done. The skin edges of the opening were trimmed one more time. The drain passage from previous insertion point seems clean without any sign of redness around the opening. It was gently pried open and then followed with a forceps while protecting the entry point with a finger. A 10 mm drain was inserted and positioned around the implant. The drain was secured. The opening in the incision was sutured with first placing open Vicryl sutures while protecting the microsoft application developer with a metal flat instrument and then tying all sutures after they had been placed to completely close the incision. A short Prolene suture was also used in a subcuticular running fashion. The area was cleaned, dried. Steri-Strips were applied to the suture ends. The drain was secured and activated. A sterile dressing was applied. The patient remained stable. Intraoperative blood loss less than 5 cc. No complications. MD ROCKY Mott/EARLE /10:44 PM /2:42 PM
[2017-08-23 16:00] VITALS: BP 116/68; PULSE 95; RESP 16; TEMP 95.9; O2SAT 96
[2017-08-23] MEDS: VANCOMYCIN INJ 1,250 MG in SODIUM CHLOR 0.9% 250 ML INJ 250 ML IV SCH (20:40)
[2017-08-23 20:41] VITALS: BP 119/81; PULSE 89; RESP 17; TEMP 97.8; O2SAT 97
[2017-08-24 00:16] VITALS: BP 125/76; PULSE 82; RESP 17; TEMP 97; O2SAT 96
[2017-08-24 04:14] VITALS: BP 113/71; PULSE 83; RESP 17; TEMP 96.7; O2SAT 97
[2017-08-24] MEDS: CYCLOBENZAPRINE HCL 10 MG TAB PO SCH ×3 (06:00→23:08)
[2017-08-24] MEDS: LEVOTHYROXINE SODIUM 100 MCG TAB PO SCH (06:12)
[2017-08-24] MEDS: ACETAMINOPHEN/HYDROcodone 325 MG/5 MG TAB PO PRN ×3 (06:12→21:12)
[2017-08-24 09:45] VITALS: BP 136/82; PULSE 64; RESP 14; TEMP 96.1; O2SAT 100
[2017-08-24 13:45] VITALS: BP 124/79; PULSE 86; RESP 16; TEMP 97.4; O2SAT 97
--- NOTE | 2017-08-24 13:49 | PD.PLAS.PN ---
Subjective Remarks Patient doing well. No fever, not much pain Vitals normal L breast flap color improved, more of light brown now, no hematoma, DORI drain is cleared up too. Yellow serous in the tube. Gram stain - no bacteria Culture pending. Vital Signs Date Time Temp Pulse Resp B/P (MAP) Pulse Ox O2 Delivery O2 Flow Rate FiO2 08/24/17 09:45 96.1 64 14 136/82 (100) 100 08/24/17 09:14 Room Air 08/24/17 04:14 96.7 83 17 113/71 (85) 97 08/24/17 00:16 97.0 82 17 125/76 (92) 96 08/23/17 20:41 97.8 89 17 119/81 (94) 97 08/23/17 19:26 Room Air 08/23/17 16:00 95.9 95 16 116/68 (84) 96 I/O 08/23/17 08/23/17 08/23/17 08/24/17 08/24/17 08/24/17 07:00 15:00 23:00 07:00 15:00 23:00 Intake Total 740 ml 720 ml 360 ml 375 ml Output Total 35 ml 25 ml 15 ml Balance 705 ml 695 ml 360 ml 360 ml Intake Oral 240 ml 720 ml 360 ml 120 ml IV Total 500 ml 255 ml Output Drainage Total 35 ml 25 ml 15 ml # Voids 3 4 2 2 # Bowel Movements 0 1 0 0 Date/Time Source Procedure Growth Status 08/23/17 04:05 Wound Breast Fungal Smear - Final NO FUNGAL ELEMENTS SEEN. Resulted 08/23/17 04:05 Wound Breast Fungal Culture Pending Resulted Result Diagram: 08/22/17 1635 08/22/17 1635 Maninder Little MD Aug 24, 2017 13:49
--- NOTE | 2017-08-24 15:02 | HHI.IDPN ---
Note Infectious Disease Note Patient feels okay. No complaints. Drainage catheter in place. 40mls emptied. afebrile. Wound culture - gram positive cocci preliminary. PAST MEDICAL HISTORY 1. Hypothyroidism. 2. Gastric ulcers. 3. History of partial hysterectomy. 4. History of left breast reconstruction, resection of lymph nodes and mastectomy. ALLERGIES PENICILLIN , SULFA, CODEINE, ADHESIVE TAPE. ANTIBIOTICS: Vancomycin. SOCIAL HISTORY The patient is . No tobacco, alcohol or illicit drugs. OBJECTIVE: Vital Signs Date Time Temp Pulse Resp B/P (MAP) Pulse Ox O2 Delivery O2 Flow Rate FiO2 08/24/17 09:45 96.1 64 14 136/82 (100) 100 08/24/17 09:14 Room Air 08/24/17 04:14 96.7 83 17 113/71 (85) 97 08/24/17 00:16 97.0 82 17 125/76 (92) 96 08/23/17 20:41 97.8 89 17 119/81 (94) 97 08/23/17 19:26 Room Air 08/23/17 16:00 95.9 95 16 116/68 (84) 96 PHYSICAL EXAMINATION GENERAL: No acute distress. Awake and alert and oriented. HEENT: Extraocular movements grossly intact. Pupils reactive to light. No icterus. Oropharynx - no visible lesions. NECK: Supple. No adenopathy. LUNGS: Clear breath sounds. HEART: Regular rate and rhythm. CHEST: The left lateral breast is mildly swollen. No erythema. The drainage catheter which exits the left lateral breast has serous-sanguinous drainage in the catheter collection bulb. ABDOMEN: Soft, nontender. EXTREMITIES: No cyanosis, clubbing or edema. SKIN: No rash. NEUROLOGIC: Nonfocal. PSYCHIATRIC: The patient calm and cooperative. IMPRESSION 1. Wound of the left breast postop. The possibilities include non-infected seroma versus infected seroma. Culture preliminary has gram positive cocci. 2. The patient status post left breast exploration and drainage. 3. Left breast cancer status post surgical treatment. RECOMMENDATIONS 1. Continue empiric intravenous vancomycin while awaiting the culture. 2. Follow the culture to determine antibiotic treatment going forward. Probably transition to oral antibiotic if sensitive bacteria. Luis Carlos Barker MD Aug 24, 2017 15:02
[2017-08-24 17:00] VITALS: BP 108/74; PULSE 73; RESP 16; TEMP 97; O2SAT 94
[2017-08-24 20:11] VITALS: BP 143/98; PULSE 84; RESP 17; TEMP 97.4; O2SAT 98
[2017-08-24] MEDS: VANCOMYCIN INJ 1,250 MG in SODIUM CHLOR 0.9% 250 ML INJ 250 ML IV SCH (21:12)
[2017-08-25 00:10] VITALS: BP 109/71; PULSE 76; RESP 17; TEMP 97.5; O2SAT 97
[2017-08-25] MEDS: ACETAMINOPHEN/HYDROcodone 325 MG/5 MG TAB PO PRN ×3 (05:46→15:34)
[2017-08-25] MEDS: LEVOTHYROXINE SODIUM 100 MCG TAB PO SCH (05:46)
[2017-08-25] MEDS: CYCLOBENZAPRINE HCL 10 MG TAB PO SCH ×2 (06:00→14:00)
[2017-08-25 08:00] VITALS: BP 111/80; PULSE 75; RESP 16; TEMP 97.5; O2SAT 96
[2017-08-25 12:00] VITALS: BP 112/69; PULSE 87; RESP 16; TEMP 96.8; O2SAT 96
--- NOTE | 2017-08-25 13:12 | HHI.IDPN ---
Note Infectious Disease Note Patient feels okay. No complaints. Drainage catheter in place. 15cc's this am. Afebrile. Feels a slight pinch sensation at the lateral breast above the catheter level. Wound culture - normal skin jen. PAST MEDICAL HISTORY 1. Hypothyroidism. 2. Gastric ulcers. 3. History of partial hysterectomy. 4. History of left breast reconstruction, resection of lymph nodes and mastectomy. ALLERGIES PENICILLIN , SULFA, CODEINE, ADHESIVE TAPE. ANTIBIOTICS: Vancomycin. SOCIAL HISTORY The patient is . No tobacco, alcohol or illicit drugs. OBJECTIVE: Vital Signs Date Time Temp Pulse Resp B/P (MAP) Pulse Ox O2 Delivery O2 Flow Rate FiO2 08/25/17 08:00 97.5 75 16 111/80 (90) 96 08/25/17 00:10 97.5 76 17 109/71 (84) 97 08/24/17 20:11 97.4 84 17 143/98 (113) 98 08/24/17 18:58 Room Air 08/24/17 17:00 97.0 73 16 108/74 (85) 94 08/24/17 13:45 97.4 86 16 124/79 (94) 97 Microbiology Date/Time Source Procedure Growth Status 08/23/17 04:05 Wound Breast Fungal Smear - Final NO FUNGAL ELEMENTS SEEN. Resulted 08/23/17 04:05 Wound Breast Fungal Culture Pending Resulted 08/23/17 04:05 Wound Breast Acid Fast Stain - Final NO ACID FAST BACILLI SEEN Resulted 08/23/17 04:05 Wound Breast Mycobacterial Culture Pending Resulted 08/23/17 04:05 Wound Breast Gram Stain - Final Resulted 08/23/17 04:05 Wound Breast Wound Culture - Preliminary RARE GROWTH NORMAL SKIN JEN... Resulted PHYSICAL EXAMINATION GENERAL: No acute distress. Awake and alert and oriented. HEENT: Extraocular movements grossly intact. Pupils reactive to light. No icterus. Oropharynx - no visible lesions. NECK: Supple. No adenopathy. LUNGS: Clear breath sounds. HEART: Regular rate and rhythm. CHEST: The left lateral breast is mildly swollen. No erythema. The drainage catheter which exits the left lateral breast has serous-sanguinous drainage in the catheter collection bulb. ABDOMEN: Soft, nontender. EXTREMITIES: No cyanosis, clubbing or edema. SKIN: No rash. NEUROLOGIC: Nonfocal. PSYCHIATRIC: The patient calm and cooperative. IMPRESSION 1. Wound of the left breast postop. The possibilities include non-infected seroma versus infected seroma. Culture has normal skin jen and therefore may not be may not reflect infection of the seroma. 2. The patient status post left breast exploration and drainage. 3. Left breast cancer status post surgical treatment. RECOMMENDATIONS Treat with PO Levaquin x 10 days. Follow up with ID Dr. Tavares in [address] Little. Luis Carlos Barker MD Aug 25, 2017 13:12
[2017-08-25] MEDS ORDERED: LEVA750T9 PO (13:18)
--- NOTE | 2017-08-25 14:53 | PD.PLAS.PN ---
Subjective Remarks Patient doing well, No new changes, left breast same - flap getting better Able to feel the drying oven attendant and the port area - reassured patient that it is a normal part of the drying oven attendant and is actually what will be used to fill the drying oven attendant as and when it can be started. Cultures are normal skin jne only. Spoke to Dr. Barker this morning, she will be only on oral antibiotics. FU out patient with Dr. Tamayo at [facility] She has plenty of pain meds at home Will have a new dressing placed today - she can change it at home prn. Use alcohol to clean left breast side. Rest she can use a wash cloth and soap and water. No shower as yet. FU in [facility] clinic Friday Vital Signs Date Time Temp Pulse Resp B/P (MAP) Pulse Ox O2 Delivery O2 Flow Rate FiO2 08/25/17 09:40 Room Air 08/25/17 08:00 97.5 75 16 111/80 (90) 96 08/25/17 00:10 97.5 76 17 109/71 (84) 97 08/24/17 20:11 97.4 84 17 143/98 (113) 98 08/24/17 18:58 Room Air 08/24/17 17:00 97.0 73 16 108/74 (85) 94 I/O 08/24/17 08/24/17 08/24/17 08/25/17 08/25/17 08/25/17 07:00 15:00 23:00 07:00 15:00 23:00 Intake Total 375 ml 1080 ml 375 ml Output Total 15 ml 15 ml Balance 360 ml 1080 ml 360 ml Intake Oral 120 ml 1080 ml 120 ml IV Total 255 ml 255 ml Output Drainage Total 15 ml 15 ml # Voids 2 4 1 # Bowel Movements 0 0 0 Date/Time Source Procedure Growth Status 08/23/17 04:05 Wound Breast Fungal Smear - Final NO FUNGAL ELEMENTS SEEN. Resulted 08/23/17 04:05 Wound Breast Fungal Culture Pending Resulted Result Diagram: 08/22/17 1635 08/22/17 1635 Maninder Little MD Aug 25, 2017 14:53
[2017-08-25] MEDS ORDERED: LEVOFLOXACIN 750 MG TAB PO SCH (15:00)
[2017-08-25] MEDS ORDERED: PHARMACY ORDERED LAB ONE (20:45)
== END 2017-08-25 17:32 | disposition home or self-care (01) | DRG 921 ==
LOC: HOR 15:03 → HSDI 22:55 → N06B 23:44
PROVIDERS: ADMIT Plastic Surgery; ATTEND Plastic Surgery
PROC: 3E0102A Introduction of Anti-Infective Envelope into Subcutaneous Tissue, Open Approach (ICD-10-PCS; 2017-08-22)
PROC: 0W9B00Z Drainage of Left Pleural Cavity with Drainage Device, Open Approach (ICD-10-PCS; 2017-08-22)
PROC: [UNRECOGNIZED PROCEDURE] (principal; 2017-08-22 21:38)
DX: L76.34 Postprocedural seroma of skin and subcutaneous tissue following other procedure (principal); E03.9 Hypothyroidism, unspecified; Y83.8 Other surgical procedures as the cause of abnormal reaction of the patient, or of later complication, without mention of misadventure at the time of the procedure; Z90.710 Acquired absence of both cervix and uterus; Z87.11 Personal history of peptic ulcer disease; Z85.3 Personal history of malignant neoplasm of breast; Z90.12 Acquired absence of left breast and nipple
CPT/HCPCS: 80048; 85025; 86403; 87015; 87070; 87102; 87116; 87205; 87206; J0131; J0690; J1100; J1580; J2250; J2270; J2405; J2765; J3010; J3370; J7050; J7120; J8501; Q0169

== ENCOUNTER 2017-09-29 04:26 | Inpatient (IN) | payer OTHER ==
[2017-09-29] VITALS (9 sets, daily range): BP systolic 109–190; BP diastolic 70–91; PULSE 70–102; RESP 16–20; TEMP 97.1–98.4; O2SAT 95–99
[~2017-09-29] VITALS: Ht 172.7 cm; Wt 79.8 kg
[~2017-09-29 04:26] MED LIST changes: +CYCL10TA PO; -FOLI800T PO; +HYDR-3516 PO; +LEVA750T9 PO; -LEVO.125 PO; +LEVO100T5 PO; -LIDOCAINE HCL 1% PF 5 ML AMPULE OTHER ONE; -MAGN400T2 PO; -METH25IN13 SQ; -MIDAZOLAM HCL 2 MG/2 ML VIAL IV ONE; -ONDANSETRON HCL 4 MG/2 ML VIAL IV PUSH ONE; -PROPOFOL 200 MG/20 ML AMP IV ONE; -STERILE WATER FOR INJECTION 20 ML VIAL IV ONE
--- NOTE | 2017-09-29 04:55 | PD ---
HPI Chief Complaint: Skin Problem Time Seen by Provider: 04:43 Travel History International Travel<30 days: No Contact w/Intl Traveler<30days: No Traveled to known affect area: No History of Present Illness HPI The patient is a 52 year old female who presents to the [facility] emergency department with a history of breast cancer originally diagnosed as an invasive ductal carcinoma of the left breast status post lumpectomy in May 2017 , status post left mastectomy with rubber process hand placement on July. The patient reports that since having the surgery she did have a seroma that was drained by her plastic surgeon, . She reports that she had a drain in place which was subsequently removed. She reports that over the last week she's had increasing swelling to the site. She reports that she saw Dr. Little again on Friday of last week and has a follow-up appointment again for tomorrow. She reports that she has been in close communication with him sending pictures on a regular basis of the area of swelling. She reports that overnight the swelling increased and progressed along the medial aspect of the breast. She reports that there is also more erythema underlying the breast. She denies having any fevers. She reports that the pain as a burning sensation. She reports that she last had chemotherapy on September 11. Her oncologist is Dr. Tran. On review of systems, the patient denies having any cough, congestion, neck pain, shortness of breath, abdominal pain, vomiting, diarrhea, urinary symptoms, or neurologic symptoms. PFSH Past Medical History Narrative Medical The patient's past medical history is significant for rheumatoid arthritis, hyperlipidemia, breast cancer, acid reflux Arthritis: Yes (BACK PAIN) Autoimmune Disease: No Blood Disorders: No Cancer: Yes (LEFT BREAST CA) Cardiovascular Problems: No High Cholesterol: Yes Chemotherapy: Yes Diabetes: No Endocrine: Yes Gastrointestinal Disorders: Yes (GASTRIC ULCER) GERD: Yes Glaucoma: No Genitourinary: Yes (FREQUENCY) Hepatitis: No Hiatal Hernia: No Hypertension: No Immune Disorder: Yes (RA) Medical other: No Musculoskeletal: Yes (RA) Neurologic: Yes (PINCHED NERVE NECK) Psychiatric: No Reproductive: No Respiratory: No Immunizations Current: Yes Thyroid Disease: Yes (HYPOTHYROID) Tetanus Vaccination: Unknown Influenza Vaccination: No ?: Not Past Surgical History Narrative Surgical The patient's past surgical history is significant for partial hysterectomy, lumpectomy followed by mastectomy and expanded placement, colonoscopy, upper endoscopy Abdominal Surgery: Yes AICD: No Cardiac Surgery: No Ear Surgery: No Endocrine Surgery: No Eye Surgery: No Genitourinary Surgery: No Gynecologic Surgery: Yes (2 PARTIAL HYSTERECTOMIES) Joint Replacement: No Oral Surgery: No Pacemaker: No Thoracic Surgery: No Other Surgery: Yes (B9 LUMP REMOVED FROM LEFT BREAST) Social History Alcohol Use: No Tobacco Use: No Substance Use: No Allergies-Medications (Allergen,Severity, Reaction): Coded Allergies: Sulfa (Sulfonamide Antibiotics) (Unverified Allergy, Severe, 09/29/17) swelling adhesive tape (Verified Allergy, Severe, BLISTERS, 09/29/17) codeine (Unverified Allergy, Severe, 09/29/17) vomits penicillin G (Unverified Allergy, Severe, 09/29/17) seizures Reported Meds & Prescriptions Reported Meds & Active Scripts Active Levaquin (Levofloxacin) 750 Mg Tablet 750 Mg PO DAILY 10 Days Reported Flexeril (Cyclobenzaprine HCl) 10 Mg Tab 10 Mg PO TID Hydrocodone-Acetaminophen 5-325 mg Tab 1 Tab PO Q4H PRN Levothyroxine (Levothyroxine Sodium) 100 Mcg Tab 100 Mcg PO DAILY D3-50 (Cholecalciferol) 50,000 Unit Cap 50,000 Unit PO WEEKLY Review of Systems Except as stated in HPI: all other systems reviewed are Neg General / Constitutional: No: Fever Eyes: No: Visual changes HENT: No: Headaches Cardiovascular: Positive: Chest Pain or Discomfort Respiratory: No: Shortness of Breath Gastrointestinal: No: Nausea, Vomiting, Diarrhea, Abdominal Pain Genitourinary: No: Dysuria Musculoskeletal: No: Pain Skin: Positive Breast Lumps, Positive Breast Tenderness, Positive Breast Swelling, No Rash Neurologic: No: Weakness, Focal Abnormalities, Change in Mentation, Slurred Speech, Sensory Disturbance Psychiatric: No: Depression Endocrine: No: Polydipsia Hematologic/Lymphatic: No: Easy Bruising Physical Exam Narrative General: The patient is a well-developed well-nourished female in no acute distress Head and Neck exam: Head is normocephalic atraumatic. Eyes: EOMI, pupils are equal round and reactive to light. Nose: Midline septum with pink mucous membranes Mouth: Dentition unremarkable. Moist mucus membranes. Posterior oropharynx is not erythematous. No tonsillar hypertrophy. Uvula midline. Airway patent. Neck: No palpable lymphadenopathy. No nuchal rigidity. No thyromegaly. Cardiovascular: Regular rate and rhythm without murmurs, gallops, or rubs. No pulse deficit to the extremities on simultaneous auscultation and palpation of her radial artery Lungs: Clear to auscultation bilaterally. No wheezes, rhonchi, or rales. Abdomen: Soft, without tenderness to palpation in all 4 quadrants of the abdomen. No guarding, rebound, or rigidity. Normal bowel sounds are audible. No tenderness on palpation of McBurney's point. Extremities: No clubbing, cyanosis, or edema. 2+ pulses in all 4 extremities. No calf tenderness on palpation. Back: No spinous process tenderness to palpation. No costovertebral angle tenderness to palpation. Neurologic Exam: Grossly nonfocal. Skin Exam: Skin is warm and dry. Breast exam: On examination of the patient's left breast, the area of interest the patient is noted to have slight erythema noted along the lateral aspect of the left breast and underlying the breast. There is fluctuance on palpation medially. There is tenderness on palpation. Data Data Last Documented VS Vital Signs Date Time Temp Pulse Resp B/P (MAP) Pulse Ox O2 Delivery O2 Flow Rate FiO2 09/29/17 05:05 86 18 151/91 (111) 96 Room Air 09/29/17 04:27 98.4 Orders Orders Complete Blood Count With Diff (09/29/17 04:58) Comprehensive Metabolic Panel (09/29/17 04:58) Prothrombin Time / Inr (Pt) (09/29/17 04:58) Act Partial Throm Time (Ptt) (09/29/17 04:58) C-Reactive Protein (Crp) (09/29/17 04:58) Iv Access Insert/Monitor (09/29/17 04:58) Ecg Monitoring (09/29/17 04:58) Oximetry (09/29/17 04:58) Blood Culture (09/29/17 07:09) Lactic Acid Sepsis Protocol (09/29/17 07:10) Aztreonam Inj (Azactam Inj) (09/29/17 07:15) Vancomycin Inj (Vancomycin Inj) (09/29/17 07:15) Metronidazole 500 Mg Inj (Flagyl 500 Mg (09/29/17 07:15) Admit Order (Ed Use Only) (09/29/17 07:23) Consult Plastic Surgery (09/29/17 ) Labs Laboratory Tests Test 09/29/17 05:05 09/29/17 07:20 White Blood Count 5.2 TH/MM3 Red Blood Count 4.46 MIL/MM3 Hemoglobin 12.7 GM/DL Hematocrit 38.0 % Mean Corpuscular Volume 85.4 FL Mean Corpuscular Hemoglobin 28.6 PG Mean Corpuscular Hemoglobin Concent 33.5 % Red Cell Distribution Width 13.6 % Platelet Count 157 TH/MM3 Mean Platelet Volume 7.9 FL Neutrophils (%) (Auto) 53.8 % Lymphocytes (%) (Auto) 36.8 % Monocytes (%) (Auto) 7.7 % Eosinophils (%) (Auto) 0.3 % Basophils (%) (Auto) 1.4 % Neutrophils # (Auto) 2.8 TH/MM3 Lymphocytes # (Auto) 1.9 TH/MM3 Monocytes # (Auto) 0.4 TH/MM3 Eosinophils # (Auto) 0.0 TH/MM3 Basophils # (Auto) 0.1 TH/MM3 CBC Comment DIFF FINAL Differential Comment Prothrombin Time 10.1 SEC Prothromb Time International Ratio 0.9 RATIO Activated Partial Thromboplast Time 26.1 SEC Blood Urea Nitrogen 14 MG/DL Creatinine 0.72 MG/DL Random Glucose 101 MG/DL Total Protein 7.1 GM/DL Albumin 3.5 GM/DL Calcium Level 8.6 MG/DL Alkaline Phosphatase 155 U/L Aspartate Amino Transf (AST/SGOT) 44 U/L Alanine Aminotransferase (ALT/SGPT) 63 U/L Total Bilirubin 0.3 MG/DL Sodium Level 141 MEQ/L Potassium Level 3.7 MEQ/L Chloride Level 107 MEQ/L Carbon Dioxide Level 24.5 MEQ/L Anion Gap 10 MEQ/L Estimat Glomerular Filtration Rate 85 ML/MIN C-Reactive Protein 0.60 MG/DL MDM Medical Decision Making Medical Screen Exam Complete: Yes Emergency Medical Condition: Yes Medical Record Reviewed: Yes Differential Diagnosis Seroma, versus abscess, versus cellulitis Narrative Course During the course of the patients emergency department visit, the patients history, examination, and differential diagnosis were reviewed with the patient. The patient was placed on a tool grinder operator with oximetry and frequent blood pressure monitoring. The patient had IV access obtained and blood work sent for analysis. A call was placed out to Dr. Little. He requested that the patient be started on broad-spectrum antibiotic that she is on chemotherapy. He requested that the patient be admitted to the hospital. He plans to take the patient to the OR for probable removal of her rubber process hand. The patients laboratory studies were reviewed and remarkable for a CBC that is within normal limits, CMP is remarkable for a GFR of 85, AST 44, ALT 63, alkaline phosphatase 155, C-reactive protein 0.6, PT 10.1, PTT 26.1. The patient was started on Azactam 2 g IV, vancomycin 1 g IV, Flagyl 500 mg IV, Given her penicillin allergy. A call was placed out to the [facility] for admission. The patients results were discussed with the patient, including the plan of care. I explained that further testing and/ or monitoring is indicated based on the patients history, examination, and/ or laboratory findings. Therefore, I recommended admission for additional evaluation. The patient expressed understanding and was agreeable with this plan. The patient was admitted to the hospital in stable condition and sent to a bed under the care of the [facility]. Physician Communication Physician Communication The patient's case including history, pertinent physical examination findings, and laboratory studies were discussed with Dr. Little. It was agreed that the patient would be admitted to the [facility] service. Consultation will be placed to Dr. Little. Diagnosis Primary Impression: Infection of left breast Admitting Information Admitting Physician Requests: Admit Varsha Mathew MD Sep 29, 2017 04:55
[2017-09-29 05:15] LABS: AUTOMATED NEUTROPHIL # 2.8 TH/MM3 (1.8-7.7); BASOPHIL # 0.1 TH/MM3 (0-0.2); BASOPHIL % 1.4 % (0.0-2.0); EOSINOPHIL % 0.3 % (0.0-4.0); HEMO FLAGS DIFF FINAL; LYMPH % 36.8 % (9.0-44.0); LYMPHOCYTE # 1.9 TH/MM3 (1.0-4.8); MEAN CELL VOLUME 85.4 FL (80.0-100.0); MEAN CORPUSCULAR HEMOGLOBIN 28.6 PG (27.0-34.0); MEAN CORPUSCULAR HGB CONC 33.5 % (32.0-36.0); MONO % 7.7 % (0.0-8.0); NEUT % 53.8 % (16.0-70.0); PLATELET COUNT 157 TH/MM3 (150-450); RED BLOOD COUNT 4.46 MIL/MM3 (4.00-5.30); RED CELL DISTRIBUTION WIDTH 13.6 % (11.6-17.2); WHITE BLOOD COUNT 5.2 TH/MM3 (4.0-11.0)
[2017-09-29 05:27] LABS: APTT (PATIENT) 26.1 SEC (24.3-30.1); INTERNATIONAL NORMALIZED RATIO 0.9 RATIO; PROTHROMBIN TIME - PATIENT 10.1 SEC (9.8-11.6)
[2017-09-29 05:32] LABS: ALT (GPT) 63 U/L (10-53); ANION GAP 10 MEQ/L (5-15); AST (GOT) 44 U/L (15-37); BICARBONATE 24.5 MEQ/L (21.0-32.0); BLOOD UREA NITROGEN 14 MG/DL (7-18); CHLORIDE 107 MEQ/L (98-107); GLOMERULAR FILTRATION RATE 85 ML/MIN (>89); POTASSIUM 3.7 MEQ/L (3.5-5.1); SODIUM (NA) 141 MEQ/L (136-145)
[2017-09-29 05:33] LABS: ALKALINE PHOSPHATASE 155 U/L (45-117); TOTAL BILIRUBIN ADULT 0.3 MG/DL (0.2-1.0)
[2017-09-29] MEDS ORDERED: AZTREONAM INJ 2,000 MG in SODIUM CHLORIDE 0.9% INJ 100 ML IV ONE (07:15)
[2017-09-29] MEDS ORDERED: VANCOMYCIN INJ 1,000 MG in SODIUM CHLOR 0.9% 250 ML INJ 250 ML IV ONE (07:15)
[2017-09-29] MEDS ORDERED: metroNIDAZOLE 500 MG INJ 100 ML IV ONE (07:15)
[2017-09-29] MEDS: LEVOTHYROXINE SODIUM 100 MCG TAB PO SCH (08:19)
[2017-09-29] MEDS ORDERED: VANCOMYCIN INJ 1,000 MG in SODIUM CHLOR 0.9% 250 ML INJ 250 ML IV SCH (08:30)
[2017-09-29] MEDS ORDERED: Vancomycin Consult Pharmacy 1 EA OTHER SCH (08:30)
[2017-09-29] MEDS ORDERED: HYDROmorphone HCL PF 1 MG/ML VIAL IV PUSH PRN (08:30)
--- NOTE | 2017-09-29 08:32 | HHI.HP ---
HPI Service [facility] Hospitalists Primary Care Physician Holly Cummings MD Admission Diagnosis left breast infection, h/o breast ca on chemotherapy Chief Complaint: Left breast infection Travel History International Travel<30 Days: No Contact w/Intl Traveler <30 Da: No Traveled to Known Affected Are: No History of Present Illness Mrs. Dover is a pleasant 52 y/o female with hypothyroidism, GERD, and left breast cancer originally diagnosed as an invasive ductal carcinoma of the left breast s/p lumpectomy in May 2017 and then subsequent left breast mastectomy with service liaison representative placement on 07/30/2017. The patient reports that since having the surgery she did have a seroma that was drained by her plastic surgeon, , in 08/22/17. She reports that she had a drain in place which was subsequently removed. She presented to the ED at [facility] with complaints of possible infection of the left breast surgical site. She reports that over the last week she's had increasing swelling to the site. She reports that she saw Dr. Little on Friday last week and was supposed to follow-up with him again for today. She reports that she has been in close communication with him sending pictures on a regular basis of the area of swelling. Overnight last night the swelling increased and progressed along the medial aspect of the breast. She reports that there is also more erythema underlying the breast. She denies having any fevers. She reports that the pain as a burning sensation. She is on chemotherapy with TCH and her first dose was on 09/11/17. She is due for her second round this week. Pt follows with Dr. Tran. Pt patient denies having any cough, congestion, neck pain, shortness of breath, abdominal pain, vomiting, diarrhea, urinary symptoms, or neurologic symptoms. Review of Systems Constitutional: DENIES: Fever, Chills Ears, nose, mouth, throat: DENIES: Vertigo Respiratory: DENIES: Cough, Shortness of breath Cardiovascular: COMPLAINS OF: Chest pain (breast pain onthe left), DENIES: Palpitations, Lower Extremity Edema Gastrointestinal: COMPLAINS OF: Nausea, DENIES: Abdominal pain, Constipation, Diarrhea, Vomiting Genitourinary: DENIES: Urinary frequency, Urinary incontinence, Urgency, Dysuria Musculoskeletal: DENIES: Joint pain, Back pain Integumentary: COMPLAINS OF: Abnormal pigmentation, Breast skin changes, DENIES : Rash, Nipple discharge Neurologic: DENIES: Headache Psychiatric: DENIES: Confusion Past Family Social History Past Medical History Breast cancer, left breast invasive ductal carcinoma, stage 1, HER-2 positive on T[facility] chemo with Dr. Tran. Hypothyroidism Hyperlipidemia Inflammatory polyarthritis Vitamin D deficiency Arthritis GERD Past Surgical History Exploration of left breast with drainage of seroma and Abx irrigation with gentamicin and DORI drain placement on 08/22/[address] Little Left breast mastectomy with sentinel lymph node biopsy and [id number] placement on 07/30/[address] Pendleton Left breast immediate reconstruction with AlloMax and tissue service liaison representative placement on 07/30/[address] Little. Left breast lumpectomy in 05/2017 Breast biopsy, in 2016 EGD/colonoscopy in 2014 Partial hysterectomy Reported Medications Levaquin (Levofloxacin) 750 Mg Tablet 750 Mg PO DAILY 10 Days Flexeril (Cyclobenzaprine HCl) 10 Mg Tab 10 Mg PO TID PRN Hydrocodone-Acetaminophen 5-325 mg Tab 1 Tab PO Q4H PRN Levothyroxine (Levothyroxine Sodium) 100 Mcg Tab 100 Mcg PO DAILY D3-50 (Cholecalciferol) 50,000 Unit Cap 50,000 Unit PO WEEKLY Allergies: Coded Allergies: Sulfa (Sulfonamide Antibiotics) (Unverified Allergy, Severe, 09/29/17) swelling adhesive tape (Verified Allergy, Severe, BLISTERS, 09/29/17) codeine (Unverified Allergy, Severe, 09/29/17) vomits penicillin G (Unverified Allergy, Severe, 09/29/17) seizures Family History Noncontributory Social History Rare previous hx of alcohol use Denies any tobacco use Pt is with 2 children She is a director of a preschool Physical Exam Vital Signs Vital Signs Date Time Temp Pulse Resp B/P (MAP) Pulse Ox O2 Delivery O2 Flow Rate FiO2 09/29/17 05:05 86 18 151/91 (111) 96 Room Air 09/29/17 04:27 98.4 93 16 190/80 (116) 99 Room Air Physical Exam GENERAL: This is a well-nourished, well-developed patient, in no apparent distress. SKIN: Erythema and swelling of the left breast from the medial incision to the later incision where the tissue service liaison representative is in place and erythema extending up the later aspect of the breast with some fluctuance HEENT: Atraumatic. Normocephalic. No temporal or scalp tenderness. No scleral icterus. Airway patent. NECK: Trachea midline, supple, nontender CARDIO: Regular RESP: CTA bilaterally. No wheezes, rales, or rhonchi. ABD: +BS, soft, non-tender, nondistended. EXT: Extremities without clubbing, cyanosis, or edema. NEURO: Awake and alert. Motor and sensory grossly within normal limits. Normal speech. Laboratory Laboratory Tests Test 09/29/17 05:05 09/29/17 07:20 White Blood Count 5.2 Red Blood Count 4.46 Hemoglobin 12.7 Hematocrit 38.0 Mean Corpuscular Volume 85.4 Mean Corpuscular Hemoglobin 28.6 Mean Corpuscular Hemoglobin Concent 33.5 Red Cell Distribution Width 13.6 Platelet Count 157 Mean Platelet Volume 7.9 Neutrophils (%) (Auto) 53.8 Lymphocytes (%) (Auto) 36.8 Monocytes (%) (Auto) 7.7 Eosinophils (%) (Auto) 0.3 Basophils (%) (Auto) 1.4 Neutrophils # (Auto) 2.8 Lymphocytes # (Auto) 1.9 Monocytes # (Auto) 0.4 Eosinophils # (Auto) 0.0 Basophils # (Auto) 0.1 CBC Comment DIFF FINAL Differential Comment Prothrombin Time 10.1 Prothromb Time International Ratio 0.9 Activated Partial Thromboplast Time 26.1 Blood Urea Nitrogen 14 Creatinine 0.72 Random Glucose 101 Total Protein 7.1 Albumin 3.5 Calcium Level 8.6 Alkaline Phosphatase 155 Aspartate Amino Transf (AST/SGOT) 44 Alanine Aminotransferase (ALT/SGPT) 63 Total Bilirubin 0.3 Sodium Level 141 Potassium Level 3.7 Chloride Level 107 Carbon Dioxide Level 24.5 Anion Gap 10 Estimat Glomerular Filtration Rate 85 C-Reactive Protein 0.60 Date/Time Source Procedure Growth Status 09/29/17 07:25 Blood Peripheral Aerobic Blood Culture Pending Received 09/29/17 07:25 Blood Peripheral Anaerobic Blood Culture Pending Received Result Diagram: 09/29/17 0505 09/29/17 0505 Septic Shock Reassessment Heart: Regular rate and rhythm Lungs: Clear Skin: Warm Caprini VTE Risk Assessment Caprini VTE Risk Assessment: No/Low Risk (score <= 1) Caprini Risk Assessment Model Point Value = 1 Point Value = 2 Point Value = 3 Point Value = 5 Age 41-60 Minor surgery BMI > 25 kg/m2 Swollen legs Varicose veins or History of unexplained or recurrent spontaneous Oral contraceptives or hormone replacement Sepsis (< 1 month) Serious lung disease, including pneumonia (< 1 month) Abnormal pulmonary function Acute myocardial infarction Congestive heart failure (< 1 month) History of inflammatory bowel disease Medical patient at bed rest Age 61-74 Arthroscopic surgery Major open surgery (> 45 min) Laparoscopic surgery (> 45 min) Malignancy Confined to bed (> 72 hours) Immobilizing plaster cast Central venous access Age >= 75 History of VTE Family history of VTE Factor V Leiden Prothrombin [id number] Lupus anticoagulant Anticardiolipin antibodies Elevated serum homocysteine Heparin-induced thrombocytopenia Other congenital or acquired thrombophilia Stroke (< 1 month) Elective arthroplasty Hip, pelvis, or leg fracture Acute spinal cord injury (< 1 month) Prophylaxis Regimen Total Risk Factor Score Risk Level Prophylaxis Regimen 0-1 Low Early ambulation 2 Moderate Order ONE of the following: *Sequential Compression Device (SCD) *Heparin 5000 units SQ BID 3-4 Higher Order ONE of the following medications: *Heparin 5000 units SQ TID *Enoxaparin/Lovenox 40 mg SQ daily (WT < 150 kg, CrCl > 30 mL/min) *Enoxaparin/Lovenox 30 mg SQ daily (WT < 150 kg, CrCl > 10-29 mL/min) *Enoxaparin/Lovenox 30 mg SQ BID (WT < 150 kg, CrCl > 30 mL/min) AND/OR *Sequential Compression Device (SCD) 5 or more Highest Order ONE of the following medications: *Heparin 5000 units SQ TID (Preferred with Epidurals) *Enoxaparin/Lovenox 40 mg SQ daily (WT < 150 kg, CrCl > 30 mL/min) *Enoxaparin/Lovenox 30 mg SQ daily (WT < 150 kg, CrCl > 10-29 mL/min) *Enoxaparin/Lovenox 30 mg SQ BID (WT < 150 kg, CrCl > 30 mL/min) AND *Sequential Compression Device (SCD) Assessment and Plan Problem List: (1) Infection of left breast ICD Codes: N61.0 - Mastitis without abscess Status: Acute Plan: - Patient is a 52 y/o female with hypothyroidism, GERD, and left breast cancer originally diagnosed as an invasive ductal carcinoma of the left breast s/p lumpectomy in May 2017 and then subsequent left breast mastectomy with service liaison representative placement on 07/30/2017. The patient reports that since having the surgery she did have a seroma that was drained by her plastic surgeon, , in 08/22/17. She reports that she had a drain in place which was subsequently removed. - She presented to the ED at [facility] with complaints of possible infection of the left breast surgical site. - She reports that over the last week she's had increasing swelling to the site. She reports that she saw Dr. Little on Friday last week and was supposed to follow-up with him again for today. - Overnight last night the swelling increased and progressed along the medial aspect of the breast. She reports that there is also more erythema underlying the breast. She reports that the pain as a burning sensation. - She was admitted for possible infection of the tissue service liaison representative and is going to the OR by Dr. Little on 09/29 for exploration of the left breast and removal of the tissue service liaison representative - Blood cultures drawn in the ED - Pain control PRN - Pt was given Vancomycin, Aztreonam and Flagyl IV in the ED - Cont. Vancomycin with pharmacy consult - Await culture results - Supportive care - DVT prophylaxis with SCDs (2) Breast cancer ICD Codes: C50.919 - Malignant neoplasm of unspecified site of unspecified female breast Status: Acute Plan: - See above - She is on chemotherapy with TCH and her first dose was on 09/11/17. - She is due for her second round this week but will likely need to hold off on that due to infection. - Pt follows with Dr. Tran. (3) Status post left mastectomy ICD Codes: Z90.12 - Acquired absence of left breast and nipple Status: Chronic Plan: - See above (4) Hypothyroidism ICD Codes: E03.9 - Hypothyroidism, unspecified Status: Chronic Plan: - Cont. home meds Assessment and Plan Patient examined. Assessment and plan formulated with Erin MARTINEZ I agree with the above. Physician Certification 2 Midnight Certification Type: Admission for Inpatient Services Order for Inpatient Services The services are ordered in accordance with Medicare regulations or non- Medicare payer requirements, as applicable. In the case of services not specified as inpatient-only, they are appropriately provided as inpatient services in accordance with the 2-midnight benchmark. Estimated LOS (days): 3 3 days is the estimated time the patient will need to remain in the hospital, assuming treatment plan goals are met and no additional complications. Post-Hospital Plan: Home Problem Qualifiers (1) Breast cancer: Erin Harrington Sep 29, 2017 08:32 Alexander Olson DO Oct 06, 2017 11:16
[2017-09-29] MEDS ORDERED: ACETAMINOPHEN 325 MG TAB PO PRN (08:45)
[2017-09-29] MEDS ORDERED: ONDANSETRON HCL 4 MG/2 ML VIAL IV PRN (08:45)
[2017-09-29] MEDS: PANTOPRAZOLE SODIUM 40 MG VIAL IV PUSH SCH (08:51)
[2017-09-29] MEDS ORDERED: ACETAMINOPHEN/HYDROcodone 325 MG/5 MG TAB PO PRN (09:00)
[2017-09-29] MEDS ORDERED: POLYETHYLENE GLYCOL 17 GM PKG PO PRN (09:00)
[2017-09-29] MEDS ORDERED: CYCLOBENZAPRINE HCL 10 MG TAB PO PRN (09:00)
[2017-09-29] MEDS ORDERED: LIDOCAINE 1%/EPINEPHrine 1:100,000 SOLN 50 ML VIAL ONE (09:17)
[2017-09-29] MEDS ORDERED: BUPIVACAINE/EPINEPHRINE 0.5% PF 30 ML VIAL ONE ×2 (09:20→09:34)
[2017-09-29] MEDS ORDERED: APREPITANT 40 MG CAP ONE (09:42)
[2017-09-29] MEDS ORDERED: SUGAMMADEX SODIUM 200 MG/2 ML VIAL IV PUSH ONE ×2 (10:48)
[2017-09-29] MEDS ORDERED: DO NOT ADM ANY ANTICOAGULANT DRUGS PRN (11:40)
[2017-09-29] MEDS ORDERED: *HYDROmorphone PF 1 MG VIAL PERIprocedural Use ONLY ONE (11:43)
[2017-09-29] MEDS ORDERED: *PROMETHAZINE 25 MG/ML VIAL PERIprocedural use ONLY ONE (12:07)
--- NOTE | 2017-09-29 12:10 | MB ---
cc: EVY BLACKMON M.D. DATE OF CONSULTATION September 29, 2017 REASON FOR CONSULTATION Left breast increasing swelling. Patient status post breast reconstruction on chemotherapy. HISTORY This is a 52-year-old white female who was originally operated on sometime back in July of 2017 for left mastectomy and immediate breast tissue architectural representative placement with AlloMax. She subsequently did well. The drain was removed following which she started getting swelling of the left breast. She was brought back for surgery and exploration on August 22, 2017. A clear seroma was encountered, a drain was placed and part of the AlloMax was removed which was not indicated. The salvage attempt seemed to do well for awhile. She was started on chemotherapy. The first session was approximately 2 weeks ago. Since the chemo she has noticed some degree of swelling coming back on the left breast. The patient was evaluated a couple of times in the clinic as well and it was noted that there was no obvious seroma and that the architectural representative was clearly palpable and getting fixed to the chest wall and the flap and a conservative course was adopted without any further expansion. She was going to finished chemotherapy and then the reconstruction was to continue. However, over the last 3-4 days the patient has noticed increasing discomfort in the left breast. The swelling by itself does not seem to be much but the lower pole of the breast is beginning to show a couple of weak spots; the architectural representative can be felt much more easily in this area and there is a good chance that the skin flap may break through causing exposure. The patient has been prepared for possibly removing the architectural representative and letting go of the reconstruction until the healing is complete. She is here in the emergency room this morning and wants to go ahead and take out the architectural representative later, letting everything heal and then continue with her chemotherapy to treat her breast cancer. PAST MEDICAL HISTORY 1. Left breast cancer and ongoing treatment. 2. She does have hypothyroidism. 3. Hyperkaliemia. 4. High blood pressure. She does not have diabetes. CURRENT MEDICATIONS 1. Levaquin that she has been placed on orally for the past week or so. 2. Flexeril. 3. Hydrocodone. 4. Synthroid. 5. Vitamin D. She does not take any antihypertensive at the present time, although she may need to as her blood pressure has been recorded at 190 systolic when she came in the emergency room. REVIEW OF SYSTEMS Otherwise negative. ALLERGIES SULFA. PENICILLIN. There is nausea and vomiting with CODEINE. PHYSICAL EXAMINATION GENERAL: The examination shows a 52-year-old white female with stable vital signs. The patient is alert, cooperative, fully oriented, not in any distress. She is resting comfortably in the emergency room bed. VITAL SIGNS: She is afebrile. HEAD AND NECK: Clear sclerae. Equal pupils. Trachea appears in midline. No gross thyromegaly. Neck movements are normal. CHEST: The chest has good expansion with normal breathing, normal breath sounds and heart sounds were recorded earlier. EXTREMITIES: The upper and lower extremities are normal. BREASTS: Local examination of the breast area shows right-side normal breasts, small volume with grade 3 nipple-areolar ptosis. The left side is a reconstructed breast with a nipple-areolar sparing mastectomy that was done. The architectural representative is actually holding good position. It may be adherent to the upper half of the chest by now and in the lower part the flap is thin including a couple of spots were it looks somewhat translucent and likely to be a point of dehiscence in the future if nothing is done. Seroma accumulation is easily palpable laterally only. There may be a small amount of fluid inside. The mastectomy flap, otherwise appears to be healing well. No gross cellulitis or lymphangitis noted. The axillary area is clear. The horizontal suture line is healing well with a small scab on the lateral chest wall aspect. The drain site is clear. RECOMMENDATIONS The patient agrees to go ahead with the plan to remove the architectural representative, the remaining AlloMax. She was also explained the capsulectomy and partial reshaping of the mastectomy flap since there will be too much skin flap and the excess can be removed in order to make it look somewhat more flat with the chest wall and attempt will be made to reposition the nipple and areola by physically moving them up with the flap. It may result in some folding and wrinkling of the upper flap. A portion of the lower flap may need to be removed. The patient understands that there will be a drain placed and overall healing may be 7-10 days. Her chemotherapy, which is scheduled for next week, may need to be postponed for a few days. She has been started on IV antibiotics and will continue with further treatment after the surgery. The patient understands that future reconstruction efforts may be decided upon the condition of the soft tissue and may involve moving back to the architectural representative implant option or may actually require autologous tissue flaps in the future. signed, not fully reviewed MD ROCKY Mott/SUSAN /10:16 AM /11:47 AM AURELIA
[2017-09-29] MEDS ORDERED: HYDROmorphone HCL PF 0.5 MG/0.5 ML SYRINGE IV PRN (12:15)
[2017-09-29] MEDS ORDERED: HYDROmorphone HCL 2 MG TAB PO PRN (12:30)
--- NOTE | 2017-09-29 12:54 | MP ---
cc: EVY LITTLE M.D. DATE OF SURGERY: 09/29/2017 PREOPERATIVE DIAGNOSIS Left breast recurrent seroma, possible impending dehiscence of lower flap. POSTOPERATIVE DIAGNOSIS Left breast recurrent seroma, possible impending dehiscence of lower flap. OPERATION Exploration of left breast, removal of tissue farm machinery assembler and AlloMax, capsule excision and debridement in the pocket and partial excision of the lower mastectomy flap with reshaping. SURGEON Dr. Little. ANESTHESIA General. INDICATIONS This is a 52-year-old white female who originally had surgery going back approximately two months for mastectomy and tissue farm machinery assembler placement. Subsequently she had seroma formation on the left breast after her Eliazar-Lackey drain had been removed. A second surgery was done to put in a new drain and drain the seroma and after approximately 7-10 days that drain was also removed. The patient has been on oral antibiotics and she recently started chemotherapy approximately 2 and 1/2 weeks ago. She now has increasing swelling and discomfort in the left breast. Also, the lower part of the mastectomy flap seems to be thinning out with two areas in particular showing the farm machinery assembler practically under the dermis, one medially and one just below the areola. The patient underwent discussion about removing the current farm machinery assembler and draining the seroma and let everything heal to continue on with her chemotherapy without having flaps and seroma issues. A second attempt at reconstruction in the future depending on the tissue condition and her desire several months down the line. The patient is willing to go ahead with the surgery. PROCEDURE The patient was brought to the operating room, was given supine position. Anesthesia was started. Prep and drape was done. The patient has already received IV antibiotics through the admission in the ER. The timeout was called and completed. The original horizontal inframammary incision was injected with lidocaine and Marcaine with epinephrine. An outline was made to remove approximately 1-1/2 inch wide lower half of the flap from end-to-end including the lateral part of the previous incision. The incision was deepened through skin down to the farm machinery assembler. On the lateral aspect approximately 30 cc of mostly serous slightly mucoid yellowish-brown drainage was encountered. A culture sample was taken. The seroma was aspirated out. The lower skin incision and the flap were further dissected and removed. This tissue will be sent for pathology mainly because of the fact that she had breast cancer on this side; otherwise the tissue seems to be normal. The farm machinery assembler was removed. The cavity was double-checked. Practically 90% of the AlloMax had already been dissolved. A very small amount of AlloMax was noted under the nipple-areolar area. This was trimmed and removed as well. The capsule is mostly fibrinous just getting organized. Several passes with low power cutting Bovie was used to crisscross both the posterior chest wall and the underside of the flap and then using the side swiping of a 10 blade and also with a Betadine scrub brush the entire area was copiously debrided out removing most of the capsule. The area was irrigated clean. Hemostasis was completed with low power Bovie. A few areas of capsule that remained were also cauterized off. The area was double-checked for hemostasis and a 10 mm flat Eliazar-Lackey drain was placed. The soft tissues were closed with 3-0 chromic sutures and the skin was closed with 4-0 Prolene subcuticular running suture. The drain was secured and activated. The patient remained stable. Intraoperative blood loss was less than 30 cc. No complications. signed, not fully reviewed MD ROCKY Mott/JOSE /11:31 AM /12:46 PM MTDD
[2017-09-29] MEDS: VANCOMYCIN 1,500 MG/NS 500 ML IV SCH ×2 (20:13)
[2017-09-29] MEDS: DOCUSATE SODIUM 100 MG CAP PO SCH (20:13)
[2017-09-29] MEDS: ACETAMINOPHEN 325 MG TAB PO PRN (20:24)
[2017-09-30] VITALS (8 sets, daily range): BP systolic 105–137; BP diastolic 73–95; PULSE 65–90; RESP 15–18; TEMP 97.2–98.5; O2SAT 95–100
[2017-09-30] MEDS: LEVOTHYROXINE SODIUM 100 MCG TAB PO SCH (05:17)
[2017-09-30] MEDS: VANCOMYCIN 1,500 MG/NS 500 ML IV SCH ×4 (09:22→21:09)
[2017-09-30] MEDS: DOCUSATE SODIUM 100 MG CAP PO SCH ×2 (09:22→21:00)
[2017-09-30] MEDS: PANTOPRAZOLE SODIUM 40 MG VIAL IV PUSH SCH (09:23)
--- NOTE | 2017-09-30 15:39 | HHI.PR ---
Subjective Remarks Pt without complaints She is anxious for discharge Afebrile Objective Vitals Vital Signs Date Time Temp Pulse Resp B/P (MAP) Pulse Ox O2 Delivery O2 Flow Rate FiO2 09/30/17 11:35 98.2 82 18 105/73 (84) 98 09/30/17 09:09 97.2 85 18 121/95 (104) 100 09/30/17 08:00 78 09/30/17 05:15 97.8 79 18 124/80 (95) 99 09/30/17 04:04 65 09/30/17 00:08 78 09/29/17 23:24 97.7 87 16 127/90 (102) 96 09/29/17 21:24 16 09/29/17 20:19 97.6 93 20 128/78 (95) 95 09/29/17 20:04 102 09/29/17 16:12 97.7 79 18 118/77 (91) 98 Result Diagram: 09/29/17 0505 09/29/17 0505 Other Results Laboratory Tests Test 09/29/17 05:05 09/29/17 07:20 White Blood Count 5.2 TH/MM3 Red Blood Count 4.46 MIL/MM3 Hemoglobin 12.7 GM/DL Hematocrit 38.0 % Mean Corpuscular Volume 85.4 FL Mean Corpuscular Hemoglobin 28.6 PG Mean Corpuscular Hemoglobin Concent 33.5 % Red Cell Distribution Width 13.6 % Platelet Count 157 TH/MM3 Mean Platelet Volume 7.9 FL Neutrophils (%) (Auto) 53.8 % Lymphocytes (%) (Auto) 36.8 % Monocytes (%) (Auto) 7.7 % Eosinophils (%) (Auto) 0.3 % Basophils (%) (Auto) 1.4 % Neutrophils # (Auto) 2.8 TH/MM3 Lymphocytes # (Auto) 1.9 TH/MM3 Monocytes # (Auto) 0.4 TH/MM3 Eosinophils # (Auto) 0.0 TH/MM3 Basophils # (Auto) 0.1 TH/MM3 CBC Comment DIFF FINAL Differential Comment Prothrombin Time 10.1 SEC Prothromb Time International Ratio 0.9 RATIO Activated Partial Thromboplast Time 26.1 SEC Blood Urea Nitrogen 14 MG/DL Creatinine 0.72 MG/DL Random Glucose 101 MG/DL Total Protein 7.1 GM/DL Albumin 3.5 GM/DL Calcium Level 8.6 MG/DL Alkaline Phosphatase 155 U/L Aspartate Amino Transf (AST/SGOT) 44 U/L Alanine Aminotransferase (ALT/SGPT) 63 U/L Total Bilirubin 0.3 MG/DL Sodium Level 141 MEQ/L Potassium Level 3.7 MEQ/L Chloride Level 107 MEQ/L Carbon Dioxide Level 24.5 MEQ/L Anion Gap 10 MEQ/L Estimat Glomerular Filtration Rate 85 ML/MIN C-Reactive Protein 0.60 MG/DL Lactic Acid Level 1.4 mmol/L Objective Remarks General: NAD, AAOx3 Chest: CTA, bandages in place on left chest, c/d/i Cardiac: Regular Abd: +BS, soft ND/NT Ext: No edema A/P Problem List: (1) Infection of left breast ICD Codes: N61.0 - Mastitis without abscess Status: Acute Plan: - Patient is a 52 y/o female with hypothyroidism, GERD, and left breast cancer originally diagnosed as an invasive ductal carcinoma of the left breast s/p lumpectomy in May 2017 and then subsequent left breast mastectomy with tax attorney placement on 07/30/2017. The patient reports that since having the surgery she did have a seroma that was drained by her plastic surgeon, , in 08/22/17. She reports that she had a drain in place which was subsequently removed. - She presented to the ED at [facility] [place] with complaints of possible infection of the left breast surgical site. - She reports that over the last week she's had increasing swelling to the site. She reports that she saw Dr. Little on Friday last week and was supposed to follow-up with him again for today. - Overnight on 09/29 the swelling increased and progressed along the medial aspect of the breast. She reports that there is also more erythema underlying the breast. She reports that the pain as a burning sensation. - She was admitted for possible infection of the tissue tax attorney and was taken to the OR by Dr. Little on 09/29 for exploration of the left breast and removal of the tissue tax attorney/capsule excision and debridement of the pocket and excision of the lower mastectomy flap with reshaping. Pt was noted to have a recurrent seroma and fluids were sent for culture. - Preliminary culture with immature grown of gram positive cocci, await final culture - Blood cultures with NGTD - Pain control PRN - Cont. Vancomycin with pharmacy consult - Spoke with Micro labs and final cultures should result tomorrow but sensitivities wont be back until . Pt does not want to stay until but is willing to stay until final cultures result tomorrow to help narrow antibiotic choices. (2) Breast cancer ICD Codes: C50.919 - Malignant neoplasm of unspecified site of unspecified female breast Status: Acute Plan: - See above - She is on chemotherapy with TCH and her first dose was on 09/11/17. - She is due for her second round this week but will likely need to hold off on that due to infection. - Pt follows with Dr. Tran. Dr. Tran was informed that the pt is in the hospital and wants to reschedule chemo for next week. (3) Status post left mastectomy ICD Codes: Z90.12 - Acquired absence of left breast and nipple Status: Chronic Plan: - See above (4) Hypothyroidism ICD Codes: E03.9 - Hypothyroidism, unspecified Status: Chronic Plan: - Cont. home meds Assessment and Plan Patient examined. Assessment and plan formulated with Erin Harrington PA-C. I agree with the above. Problem Qualifiers (1) Breast cancer: Erin Harrington Sep 30, 2017 15:39 Alexander Olson DO Oct 06, 2017 11:15
--- NOTE | 2017-09-30 16:22 | PD.PLAS.PN ---
Subjective Remarks Patient doing well Afebrile Has been walking around freely and feeling good overall Awaiting culture results still. Left breast dressing removed, flap viable, suture line clean no hematoma, DORI drain minimal. OK to leave dressing off if she wants to. OK to shower - use Xeroform strip only on the incision line. Vital Signs Date Time Temp Pulse Resp B/P (MAP) Pulse Ox O2 Delivery O2 Flow Rate FiO2 09/30/17 16:09 97.7 83 18 137/77 (97) 97 09/30/17 11:35 98.2 82 18 105/73 (84) 98 09/30/17 09:09 97.2 85 18 121/95 (104) 100 09/30/17 08:00 78 09/30/17 05:15 97.8 79 18 124/80 (95) 99 09/30/17 04:04 65 09/30/17 00:08 78 09/29/17 23:24 97.7 87 16 127/90 (102) 96 09/29/17 21:24 16 09/29/17 20:19 97.6 93 20 128/78 (95) 95 09/29/17 20:04 102 I/O 09/29/17 09/29/17 09/29/17 09/30/17 09/30/17 09/30/17 07:00 15:00 23:00 07:00 15:00 23:00 Intake Total 1200 ml 480 ml Output Total 55 ml 20 ml 15 ml Balance 1145 ml 460 ml -15 ml Intake Oral 480 ml Other 1200 ml Output Drainage Total 30 ml 20 ml 15 ml Estimated Blood Loss 25 ml # Voids 1 1 5 Date/Time Source Procedure Growth Status 09/29/17 07:25 Blood Peripheral Aerobic Blood Culture - Preliminary NO GROWTH IN 1 DAY Resulted 09/29/17 07:25 Blood Peripheral Anaerobic Blood Culture - Preliminary NO GROWTH IN 1 DAY Resulted 09/29/17 10:45 Wound Breast Fungal Smear - Final NO FUNGAL ELEMENTS SEEN. Resulted 09/29/17 10:45 Wound Breast Fungal Culture Pending Resulted Result Diagram: 09/29/17 0505 09/29/17 0505 Maninder Little MD Sep 30, 2017 16:22
[2017-09-30] MEDS ORDERED: PHARMACY ORDERED LAB ONE (19:45)
[2017-10-01 00:02] VITALS: BP 127/91; PULSE 74; RESP 16; TEMP 97.9; O2SAT 98
[2017-10-01 05:12] VITALS: BP 123/76; PULSE 78; RESP 16; TEMP 97.6; O2SAT 97
[2017-10-01] MEDS: LEVOTHYROXINE SODIUM 100 MCG TAB PO SCH (05:14)
[2017-10-01] MEDS: ACETAMINOPHEN 325 MG TAB PO PRN (05:16)
--- NOTE | 2017-10-01 08:46 | HHI.PR ---
Subjective Remarks doing great . eager for d/c Objective Vitals heart reg lung cta abd s/nt ext no edema left chest. incision. no drainage. yocasta drain 15cc. Vital Signs Date Time Temp Pulse Resp B/P (MAP) Pulse Ox O2 Delivery O2 Flow Rate FiO2 10/01/17 05:12 97.6 78 16 123/76 (92) 97 10/01/17 00:02 97.9 74 16 127/91 (103) 98 09/30/17 20:00 98.5 90 15 133/87 (102) 95 09/30/17 16:09 97.7 83 18 137/77 (97) 97 09/30/17 11:35 98.2 82 18 105/73 (84) 98 09/30/17 09:09 97.2 85 18 121/95 (104) 100 Result Diagram: 09/29/17 0505 09/29/17 0505 A/P Problem List: (1) Infection of left breast ICD Codes: N61.0 - Mastitis without abscess Status: Acute Plan: - Patient is a 52 y/o female with hypothyroidism, GERD, and left breast cancer originally diagnosed as an invasive ductal carcinoma of the left breast s/p lumpectomy in May 2017 and then subsequent left breast mastectomy with unit nurse placement on 07/30/2017. The patient reports that since having the surgery she did have a seroma that was drained by her plastic surgeon, , in 08/22/17. She reports that she had a drain in place which was subsequently removed. - [place] [facility] [place] complaints of possible infection of the left breast surgical site. - She reports that over the last week she's had increasing swelling to the site. She reports that she saw Dr. Little on Friday last week and was supposed to follow-up with him again for today. - Overnight on 09/29 the swelling increased and progressed along the medial aspect of the breast. She reports that there is also more erythema underlying the breast. She reports that the pain as a burning sensation. - She was admitted for possible infection of the tissue unit nurse and was taken to the OR by Dr. Little on 09/29 for exploration of the left breast and removal of the tissue unit nurse/capsule excision and debridement of the pocket and excision of the lower mastectomy flap with reshaping. Pt was noted to have a recurrent seroma and fluids were sent for culture. - Preliminary culture with immature grown of gram positive cocci, await final culture - Blood cultures with NGTD - Pain control PRN - Cont. Vancomycin with pharmacy consult -will f/u seroma cx's. might need to discuss rx options with ID (2) Breast cancer ICD Codes: C50.919 - Malignant neoplasm of unspecified site of unspecified female breast Status: Acute Plan: - See above - She is on chemotherapy with TCH and her first dose was on 09/11/17. - She is due for her second round this week but will likely need to hold off on that due to infection. - Pt follows with Dr. Tran. Dr. Tran was informed that the pt is in the hospital and wants to reschedule chemo for next week. (3) Status post left mastectomy ICD Codes: Z90.12 - Acquired absence of left breast and nipple Status: Chronic Plan: - See above (4) Hypothyroidism ICD Codes: E03.9 - Hypothyroidism, unspecified Status: Chronic Plan: - Cont. home meds Problem Qualifiers (1) Breast cancer: Darin Yanez MD Oct 01, 2017 08:46
[2017-10-01 10:05] VITALS: BP 123/81; PULSE 92; RESP 12; TEMP 97.7; O2SAT 96
[2017-10-01] MEDS: DOCUSATE SODIUM 100 MG CAP PO SCH (10:09)
[2017-10-01] MEDS: PANTOPRAZOLE SODIUM 40 MG VIAL IV PUSH SCH (10:09)
[2017-10-01] MEDS: VANCOMYCIN 1,500 MG/NS 500 ML IV SCH ×2 (10:15)
[2017-10-01 14:12] VITALS: BP 135/85; PULSE 80; RESP 14; TEMP 98.4; O2SAT 97
[2017-10-01] MEDS ORDERED: ZYVO600T PO (16:00)
--- NOTE | 2017-10-01 16:27 | PD.ID.CON ---
History of Present Illness Service ID Consult Requested By Reason for Consult Evaluation and Mment of Left breast infected seroma in presence of implant now s.p removal. Primary Care Physician Holly Cummings MD Diagnoses: History of Present Illness Mrs. Dover is a pleasant 52 y/o female with hypothyroidism, GERD, and left breast cancer originally diagnosed as an invasive ductal carcinoma of the left breast s/p lumpectomy in May 2017 and then subsequent left breast mastectomy with insulation cupola operator placement on 07/30/2017. The patient reports that since having the surgery she did have a seroma that was drained by her plastic surgeon, , in 08/22/17. She reports that she had a drain in place which was subsequently removed. She presented to the ED at [facility] [place] with complaints of possible infection of the left breast surgical site. She reports that over the last week she's had increasing swelling to the site. She reports that she saw Dr. Little on Friday last week and was supposed to follow-up with him again for today. She reports that she has been in close communication with him sending pictures on a regular basis of the area of swelling. Overnight last night the swelling increased and progressed along the medial aspect of the breast. She reports that there is also more erythema underlying the breast. She denies having any fevers. She reports that the pain as a burning sensation. She is on chemotherapy with T[facility] and her first dose was on . She is due for her second round this week. Pt follows with Dr. Tran. Pt patient denies having any cough, congestion, neck pain, shortness of breath, abdominal pain, vomiting, diarrhea, urinary symptoms, or neurologic symptoms. Patient reports there was an infected mesh area and also erythema along the suture margins with what appeared to be her implant popping out from one suture line side. ID consulted for infected seroma/breast abscess on left side. She denies being on any antibiotics prior to admission. Review of Systems Constitutional: DENIES: Diaphoretic episodes, Fatigue, Fever, Weight gain, Weight loss, Chills, Dizziness, Change in appetite, Night Sweats Endocrine: DENIES: Abnorml menstrual pattern, Heat/cold intolerance, Polydipsia , Polyuria, Polyphagia Eyes: DENIES: Blurred vision, Diplopia, Eye inflammation, Eye pain, Vision loss , Photosensitivity, Double Vision Ears, nose, mouth, throat: DENIES: Tinnitus, Hearing loss, Vertigo, Nasal discharge, Oral lesions, Throat pain, Hoarseness, Ear Pain, Running Nose, Epistaxis, Sinus Pain, Toothache, Odynophagia Respiratory: DENIES: Apneas, Cough, Snoring, Wheezing, Hemoptysis, Sputum production, Shortness of breath Cardiovascular: DENIES: Chest pain, Palpitations, Syncope, Dyspnea on Exertion , PND, Lower Extremity Edema, Orthopnea, Claudication Gastrointestinal: DENIES: Abdominal pain, Black stools, Bloody stools, Constipation, Diarrhea, Nausea, Vomiting, Difficulty Swallowing, Anorexia Genitourinary: DENIES: Abnormal vaginal bleeding, Dysmenorrhea, Dyspareunia, Sexual dysfunction, Urinary frequency, Urinary incontinence, Urgency, Hematuria , Dysuria, Nocturia, Vaginal discharge Musculoskeletal: DENIES: Joint pain, Muscle aches, Stiffness, Joint Swelling, Back pain, Neck pain Integumentary: COMPLAINS OF: Abnormal pigmentation, Breast skin changes, DENIES : Pruritus, Rash, Nail changes, Breast masses, Nipple discharge Hematologic/lymphatic: DENIES: Bruising, Lymphadenopathy Immunologic/allergic: DENIES: Eczema, Urticaria Neurologic: DENIES: Abnormal gait, Headache, Localized weakness, Paresthesias, Seizures, Speech Problems, Tremor, Poor Balance Except as stated in HPI: all other systems reviewed are Neg Past Family Social History Allergies: Coded Allergies: Sulfa (Sulfonamide Antibiotics) (Unverified Allergy, Severe, 09/29/17) swelling adhesive tape (Verified Allergy, Severe, BLISTERS, 09/29/17) codeine (Unverified Allergy, Severe, 09/29/17) vomits penicillin G (Unverified Allergy, Severe, 09/29/17) seizures Past Medical History Breast cancer, left breast invasive ductal carcinoma, stage 1, HER-2 positive on [facility] chemo with Dr. Tran. Hypothyroidism Hyperlipidemia Inflammatory polyarthritis Vitamin D deficiency Arthritis GERD Past Surgical History Exploration of left breast with drainage of seroma and Abx irrigation with gentamicin and DORI drain placement on 08/22/[address] Little Left breast mastectomy with sentinel lymph node biopsy and [id number] placement on 07/30/[address] Pendleton Left breast immediate reconstruction with AlloMax and tissue insulation cupola operator placement on 07/30/[address] Little. Left breast lumpectomy in 05/2017 Breast biopsy, in 2017 EGD/colonoscopy in 2014 Partial hysterectomy Reported Medications Reported Meds & Active Scripts Active Zyvox (Linezolid) 600 Mg Tab 600 Mg PO Q12H 10 Days Levaquin (Levofloxacin) 750 Mg Tablet 750 Mg PO DAILY 10 Days Reported Flexeril (Cyclobenzaprine HCl) 10 Mg Tab 10 Mg PO TID PRN Hydrocodone-Acetaminophen 5-325 mg Tab 1 Tab PO Q4H PRN Levothyroxine (Levothyroxine Sodium) 100 Mcg Tab 100 Mcg PO DAILY D3-50 (Cholecalciferol) 50,000 Unit Cap 50,000 Unit PO WEEKLY Active Ordered Medications Current Medications Medications (Trade) Dose Ordered Sig/Libia Route Start Time Stop Time Status Last Admin (Synthroid) 100 mcg DAILY@0600 PO 09/29/17 06:00 10/01/17 05:14 (Flexeril) 10 mg TID PRN PO 09/29/17 09:00 (Protonix Inj) 40 mg Q24H IV PUSH 09/29/17 09:00 10/01/17 10:09 Pharmacy Profile Note 0 ml @ 0 mls/hr UNSCH OTHER 09/29/17 08:30 (Tylenol) 650 mg Q4H PRN PO 09/29/17 08:45 (Zofran Inj) 4 mg Q6H PRN IV 09/29/17 08:45 (Colace) 100 mg BID PO 09/29/17 09:00 10/01/17 10:09 (Miralax) 17 gm DAILY PRN PO 09/29/17 09:00 Vancomycin HCl 1500 mg/Sodium Chloride 515 ml @ 257.5 mls/ hr Q12H IV 09/29/17 20:00 10/01/17 10:15 (Dilaudid Pf Inj) 0.5 mg Q4H PRN IV 09/29/17 12:15 (Dilaudid) 2 mg Q4H PRN PO 09/29/17 12:30 (Tylenol) 650 mg Q4H PRN PO 09/29/17 12:30 10/01/17 05:16 Miscellaneous Information SPECIFIC LAB TO BE DRAWN:[facility]... ONCE ONCE .XX 10/02/17 07:45 10/02/17 07:46 Family History reviewed and NC to current ID problems. Social History Rare previous hx of alcohol use Denies any tobacco use Pt is with 2 children She is a director of a preschool Physical Exam Vital Signs Vital Signs Date Time Temp Pulse Resp B/P (MAP) Pulse Ox O2 Delivery O2 Flow Rate FiO2 10/01/17 14:12 98.4 80 14 135/85 (102) 97 10/01/17 10:05 97.7 92 12 123/81 (95) 96 10/01/17 05:12 97.6 78 16 123/76 (92) 97 10/01/17 00:02 97.9 74 16 127/91 (103) 98 09/30/17 20:00 98.5 90 15 133/87 (102) 95 Physical Exam GENERAL: This is a well-nourished, well-developed patient, in no apparent distress. SKIN: No rashes, ecchymoses or lesions. Cool and dry. HEAD: Atraumatic. Normocephalic. No temporal or scalp tenderness. EYES: Pupils equal round and reactive. Extraocular motions intact. No scleral icterus. No injection or drainage. ENT: Nose without bleeding, purulent drainage or septal hematoma. Throat without erythema, tonsillar hypertrophy or exudate. Uvula midline. Airway patent. NECK: Trachea midline. Supple, nontender, no meningeal signs. CARDIOVASCULAR: Regular rate and rhythm without murmurs, gallops, or rubs. Left breast with horizontal scar noted with clean margins. Erythema noted. RESPIRATORY: Clear to auscultation. Breath sounds equal bilaterally. No wheezes , rales, or rhonchi. GASTROINTESTINAL: Abdomen soft, non-tender, nondistended. MUSCULOSKELETAL: Extremities without clubbing, cyanosis, or edema. No joint tenderness, effusion, or edema noted. No calf tenderness. Negative Homans sign bilaterally. NEUROLOGICAL: Awake and alert. Cranial nerves II through XII intact. Motor and sensory grossly within normal limits. Five out of 5 muscle strength in all muscle groups. Normal speech. Psych cooperative Port site with no e/o infection. IV line sites with no e.o infection. Laboratory Laboratory Tests Test 09/30/17 21:00 Vancomycin Level Trough 16.0 Date/Time Source Procedure Growth Status 09/29/17 07:25 Blood Peripheral Aerobic Blood Culture - Preliminary NO GROWTH IN 2 DAYS Resulted 09/29/17 07:25 Blood Peripheral Anaerobic Blood Culture - Preliminary NO GROWTH IN 2 DAYS Resulted 09/29/17 10:45 Wound Breast Fungal Smear - Final NO FUNGAL ELEMENTS SEEN. Resulted 09/29/17 10:45 Wound Breast Fungal Culture Pending Resulted Result Diagram: 09/29/17 0505 09/29/17 0505 Assessment and Plan Assessment and Plan Left breast infected seroma/abscess s.p removal of breast implant. Breast Cancer Port in place Recs DC home on Oral Zyvox for 10 days Follow up with within 10 days to assess if infection resolved and to be cleared for chemotherapy. CBC with diff as outpatient to monitor marrow toxicity. Piter Dumas Patient and spouse. Lisha Valencia MD Oct 01, 2017 16:27
--- NOTE | 2017-10-01 16:30 | HHI.DS ---
Discharge Summary Admission Date Sep 29, 2017 at 07:26 Discharge Date: Oct 01, 2017 Admitting Diagnosis left breast infection, h/o breast ca on chemotherapy (1) Infection of left breast ICD Codes: N61.0 - Mastitis without abscess Status: Acute (2) Breast cancer ICD Codes: C50.919 - Malignant neoplasm of unspecified site of unspecified female breast Status: Acute (3) Status post left mastectomy ICD Codes: Z90.12 - Acquired absence of left breast and nipple Status: Chronic (4) Hypothyroidism ICD Codes: E03.9 - Hypothyroidism, unspecified Status: Chronic Consultants Dr. Anabel Valencia Procedures none Brief History Mrs. Dover is a pleasant 52 y/o female with hypothyroidism, GERD, and left breast cancer originally diagnosed as an invasive ductal carcinoma of the left breast s/p lumpectomy in May 2017 and then subsequent left breast mastectomy with general farm manager placement on 07/30/2017. The patient reports that since having the surgery she did have a seroma that was drained by her plastic surgeon, , in 08/22/17. She reports that she had a drain in place which was subsequently removed. She presented to the ED at [facility] [place] with complaints of possible infection of the left breast surgical site. She reports that over the last week she's had increasing swelling to the site. She reports that she saw Dr. Little on Friday last week and was supposed to follow-up with him again for today. She reports that she has been in close communication with him sending pictures on a regular basis of the area of swelling. Overnight last night the swelling increased and progressed along the medial aspect of the breast. She reports that there is also more erythema underlying the breast. She denies having any fevers. She reports that the pain as a burning sensation. She is on chemotherapy with [facility] and her first dose was on 09/11/17. She is due for her second round this week. Pt follows with Dr. Tran. Pt patient denies having any cough, congestion, neck pain, shortness of breath, abdominal pain, vomiting, diarrhea, urinary symptoms, or neurologic symptoms. CBC/BMP: 09/29/17 0505 09/29/17 0505 Significant Findings Laboratory Tests Test 09/29/17 05:05 09/29/17 07:20 09/30/17 21:00 Alkaline Phosphatase 155 U/L (45-117) Aspartate Amino Transf (AST/SGOT) 44 U/L (15-37) Alanine Aminotransferase (ALT/SGPT) 63 U/L (10-53) Estimat Glomerular Filtration Rate 85 ML/MIN (>89) C-Reactive Protein 0.60 MG/DL (0.00-0.30) Vancomycin Level Trough 16.0 MCG/ML (5.0-10.0) PE at Discharge heart reg lung cta abd s/nt ext no edema left chest. incision. no drainage. yocasta drain in place compressed Hospital Course Infection of left breast - Patient is a 52 y/o female with hypothyroidism, GERD, and left breast cancer originally diagnosed as an invasive ductal carcinoma of the left breast s/p lumpectomy in May 2017 and then subsequent left breast mastectomy with general farm manager placement on 07/30/2017. The patient reports that since having the surgery she did have a seroma that was drained by her plastic surgeon, , in 08/22/17. She reports that she had a drain in place which was subsequently removed. - She presented to the ED at [facility] [place] with complaints of possible infection of the left breast surgical site. - She reports that over the last week she's had increasing swelling to the site. She reports that she saw Dr. Little on Friday last week and was supposed to follow-up with him again for today. - Overnight on 09/29 the swelling increased and progressed along the medial aspect of the breast. She reports that there is also more erythema underlying the breast. She reports that the pain as a burning sensation. - She was admitted for possible infection of the tissue general farm manager and was taken to the OR by Dr. Little on 09/29 for exploration of the left breast and removal of the tissue general farm manager/capsule excision and debridement of the pocket and excision of the lower mastectomy flap with reshaping. Pt was noted to have a recurrent seroma and fluids were sent for culture. - Preliminary culture with immature grown of gram positive cocci, await final culture - Blood cultures with NGTD - Pain control PRN - Cont. Vancomycin with pharmacy consult -will f/u seroma cx's. - consulted ID discuss with ID Dr. Valencia will start Zyvox 600mg PO BID for 10 days - Patient to follow up with Dr. Dr. Irish Tavares in 1 week for follow up to determine total coarse of abx - Patient has weekly CBCs with oncologist Dr. Stone Tran he will follow CBC while on Zyvox - Patient also to follow up with Dr. Little in 1 week Breast cancer - See above - She is on chemotherapy with T[facility] and her first dose was on 09/11/17. - She is due for her second round this week but will likely need to hold off on that due to infection. - Pt follows with Dr. Tran. Dr. Tran was informed that the pt is in the hospital and wants to reschedule chemo for next week. Status post left mastectomy - See above Hypothyroidism - Cont. home meds Pt Condition on Discharge: Stable Discharge Disposition: Discharge Home Discharge Instructions DIET: Follow Instructions for: As Tolerated, No Restrictions Activities you can perform: Regular-No Restrictions, See Additionl Instruction Other Activity Instructions: activity per surgery Follow up Referrals: Infectious Disease - [address] Irish Tavares Oncology - [address] Stone Tran Plastic Surgery - [address] Little New Medications: Linezolid (Zyvox) 600 Mg Tab 600 MG PO Q12H for Infection for 10 Days, #20 TAB 0 Refills Continued Medications: Cholecalciferol (D3-50) 50,000 Unit Cap 00233 UNIT PO WEEKLY Cyclobenzaprine (Flexeril) 10 Mg Tab 10 MG PO TID PRN for muscle spasms, #90 TAB 0 Refills Hydrocodone-Acetaminophen (Hydrocodone-Acetaminophen) 5-325 mg Tab 1 TAB PO Q4H PRN for PAIN, TAB 0 Refills Levothyroxine (Levothyroxine) 100 Mcg Tab 100 MCG PO DAILY for Thyroid, #30 TAB 0 Refills Discontinued Medications: Levofloxacin (Levaquin) 750 Mg Tablet 750 MG PO DAILY for Infection for 10 Days, #10 TAB 0 Refills Samantha Calzada Oct 01, 2017 16:30
[2017-10-01 17:05] VITALS: BP 118/86; PULSE 93; RESP 18; TEMP 98; O2SAT 100
[2017-10-02] MEDS ORDERED: PHARMACY ORDERED LAB ONE (07:45)
== END 2017-10-02 02:59 | disposition home or self-care (01) | DRG 908 ==
LOC: NEPE 04:26 → NEDA 07:26 → HCIN 13:27
PROVIDERS: ADMIT Hospitalist; ATTEND Hospitalist
PROC: 0HBUXZZ (ICD-10-PCS; 2017-09-29)
PROC: 0HW Skin and Breast, Revision (ICD-10-PCS; 2017-09-29)
PROC: 0HPU0NZ Removal of Tissue Expander from Left Breast, Open Approach (ICD-10-PCS; principal; 2017-09-29 10:18)
DX: L76.34 Postprocedural seroma of skin and subcutaneous tissue following other procedure (principal); T81.4XXA Infection following a procedure, initial encounter; C50.912 Malignant neoplasm of unspecified site of left female breast; E03.9 Hypothyroidism, unspecified; E78.5 Hyperlipidemia, unspecified; K21.9 Gastro-esophageal reflux disease without esophagitis; E55.9 Vitamin D deficiency, unspecified; M06.4 Inflammatory polyarthropathy; Z17.0 Estrogen receptor positive status [ER+]; Z88.0 Allergy status to penicillin; Z88.2 Allergy status to sulfonamides; Z88.5 Allergy status to narcotic agent; Z90.12 Acquired absence of left breast and nipple
CPT/HCPCS: 80053; 80202; 83605; 85025; 85610; 85730; 86140; 86403; 87015; 87040; 87070; 87077; 87102; 87116; 87186; 87205; 87206; 88307; 96374; C9113; J1170; J2550; J3370; J7040; J7050; J8501